=== PATIENT | female | born 1930 | race Caucasian/White ===

== ENCOUNTER 2018-01-12 18:04 | Inpatient (IN) | payer MEDICARE, OTHER ==
--- NOTE | 2018-01-12 18:36 | ED ---
Altered Mental Status - HPI Summary HPI Summary: An 87 y/o F BIBA presents to ED with AMS onset [employer]. Per daughter, pt was confused and talking about "taking her grandmother home." The daughter was going to bring the pt in, but upon walking her toward the car, the pt became very pale, then flushed and weak, she walked into a wall. Pt's last UTI was three years ago. No PMHx: psych issues, pt has mild confusion/dementia. - History Of Current Complaint Chief Complaint: EDAltMentalStatus Stated Complaint: AMS Time Seen by Provider: 01/12/18 18:35 Hx Obtained From: Patient, Family/Pediatric Genetic Counselor - daughter present Onset/Duration: Still Present Timing: Constant Severity Initially: Moderate Severity Currently: Moderate Character: Confusion Associated Signs And Symptoms: Positive: Weakness - Allergies/Home Medications Allergies/Adverse Reactions: Allergies Allergy/AdvReac Type Severity Reaction Status Date / Time No Known Allergies Allergy Verified 04/16/14 13:29 Home Medications: Home Medications Aspirin EC TAB* [Ecotrin EC Low Dose 81 MG*] 81 mg PO DAILY 01/12/18 [History Confirmed 01/12/18] Colesevelam(NF) [Welchol(NF)] 1,250 mg PO BID 01/12/18 [History Confirmed ] Furosemide TAB* [Lasix TAB*] 20 mg PO DAILY 01/12/18 [History Confirmed 01/12/18 ] Levothyroxine TAB* [Synthroid TAB*] 37.5 mcg PO DAILY 01/12/18 [History Confirmed 01/12/18] Loperamide HCl [Anti-Diarrheal] 2 mg PO TID PRN 01/12/18 [History Confirmed ] Mirabegron (NF) [Myrbetriq (NF)] 50 mg PO DAILY 01/12/18 [History Confirmed ] Solifenacin(NF) [Vesicare(NF)] 5 mg PO DAILY 01/12/18 [History Confirmed ] amLODIPine TAB* [Norvasc 5 mg TAB*] 5 mg PO DAILY 01/12/18 [History Confirmed ] PMH/Surg Hx/FS Hx/Imm Hx Previously Healthy: No Endocrine/Hematology History: Denies: Hx Diabetes Cardiovascular History: Reports: Hx Angina, Hx Congestive Heart Failure, Hx Coronary Artery Disease, Hx Hypercholesterolemia, Hx Hypertension, Other Cardiovascular Problems/Disorders - Echoardiagram 2014-ejection fx of 35-40% Denies: Hx Myocardial Infarction, Hx Valvular Heart Disease Respiratory History: Denies: Hx Asthma, Hx Chronic Obstructive Pulmonary Disease (COPD) History: Denies: Hx Renal Disease Musculoskeletal History: Reports: Other Musculoskeletal History - Osteoarthritis Sensory History: Reports: Hx Contacts or Glasses Opthamlomology History: Reports: Hx Contacts or Glasses Neurological History: Reports: Other Neuro Impairments/Disorders - PT HAS TREMORS, VISIBLE - Surgical History Surgery Procedure, Year, and Place: EYE SURGERY (CATARACTS?) DATE UNKNOWN. 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 Negative: Fever Positive: Weakness Psychological: Other - pos: AMS All Other Systems Reviewed And Are Negative: Yes Physical Exam - Summary Physical Exam Summary: VITAL SIGNS: Reviewed. GENERAL: Patient is a well-developed and mobirdly obese Female who is lying comfortable in the stretcher. Patient is not in any acute respiratory distress. HEAD AND FACE: No signs of trauma. No ecchymosis, hematomas or skull depressions. No sinus tenderness. EYES: PERRLA, EOMI x 2, No injected conjunctiva, no nystagmus. EARS: Hearing grossly intact. Ear canals and tympanic membranes are within normal limits. MOUTH: Oropharynx within normal limits. NECK: Supple, trachea is midline, no adenopathy, no JVD, no carotid bruit, no c- spine tenderness, neck with full ROM. CHEST: Symmetric, no tenderness at palpation LUNGS: Clear to auscultation bilaterally. No wheezing or crackles. CVS: Regular rate and rhythm, S1 and S2 present, no murmurs or gallops appreciated. ABDOMEN: Soft, non-tender. No signs of distention. No rebound no guarding, and no masses palpated. Bowel sounds are normal. EXTREMITIES: FROM in all major joints, bilateral lower extremity edema with chronic skin changes, no cyanosis or clubbing. NEURO: Alert and oriented x 2 - name and time. No acute neurological deficits. Non-focal. Speech is normal and follows commands. SKIN: Dry and warm Triage Information Reviewed: Yes Vital Signs On Initial Exam: Initial Vitals Temp Pulse Resp BP Pulse Ox 99.6 F 64 18 128/75 98 01/12/18 18:05 01/12/18 18:05 01/12/18 18:05 01/12/18 18:05 01/12/18 18:05 Vital Signs Reviewed: Yes Diagnostics - Vital Signs Vital Signs Temp Pulse Resp BP Pulse Ox 01/12/18 18:05 99.6 F 64 18 128/75 98 - Laboratory Result Diagrams: 01/12/18 19:33 01/12/18 19:33 Lab Statement: Any lab studies that have been ordered have been reviewed, and results considered in the medical decision making process. - Radiology CXR Xray Interpretation: Positive (See Comments) Radiology Interpretation Completed By: ED Physician - right lower lobe infiltrate, pending offical report. - CT brain ct CT Interpretation: No Acute Changes CT Interpretation Completed By: Radiologist - no acute intracranial abnormality , no change from the comparison study; this report was reviewed by ED physician. - EKG 1908 Cardiac Rate: Bradycardia - rate of 58 BPM EKG Rhythm: Sinus Bradycardia EKG Interpretation: q waves in v1 and v2 Re-Evaluation - Re-Evaluation First Eval Re-Evaluation Time: 20:12 Comment: Patient was informed of decision to admit for further workup, patient and patients daughter understand and are agreeable with this plan. Altered Mental Statu Course/Dx - Course Assessment/Plan: Patient is a 87 y/o F w/ c/o AMS onsetting today. Patients daughter was going to bring patient into ED due to AMS; while walking to car, patient became pale, then flushed and weak and then walked into a wall. Patient has mild confusion/dementia. PE showed patient was Alert and oriented x 2 - name and time, bilateral lower extremity edema with chronic skin changes. Patient is morbidly obese. EKG showed bradycardia, q waves in v1 and v2. CT showed no acute intracranial abnormalities. CXR revealed right lower lobe infiltrate. Labs showed 20.7 CRP. During ED course, patient was given IV antibiotics, piperacillin and tazobactam. Patients case was discussed with Dr. Arredondo at 2008. Dr. Arredondo accepts patient for admission to [facility]. Patient was informed of decision to admit for further workup, patient and patients daughter understand and are agreeable with this plan. Dx of pneumonia. - Diagnoses Provider Diagnoses: Pneumonia - Provider Notifications Discussed Care Of Patient With: Mor Avila Time Discussed With Above Provider: 20:09 Instructed by Provider To: Other - Patients case was discussed with Dr. Arredondo at 2008. Dr. Arredondo accepts patient for admission to [facility]. Discharge - Sign-Out/Discharge Documenting (check all that apply): Patient Departure - admit - Discharge Plan Condition: Good Disposition: ADMITTED TO [facility] Referrals: Davis Ferguson MD [Primary Care Provider] - - Attestation Statements Document Initiated by Scribe: Yes Documenting Scribe: Scottie Levi Provider For Whom Scribe is Documenting (Include Credential): Dr. Estephanie Caballero MD Scribe Attestation: I, Scottie Levi, scribed for Dr. Estephanie Caballero MD on at 2056.
[2018-01-12 19:50] LABS: ABS Basophils 0.1 10^3/ul (0-0.2); ABS Eosinophils 0.2 10^3/ul (0-0.6); ABS Lymphocytes 1.1 10^3/ul (1.0-4.8); ABS Monocytes 0.8 10^3/ul (0-0.8); ABS Nucleated RBC 0 10^3/ul; Eosinophil % 3.1 % (0-6); Hematocrit 37 % (35-47); Hemoglobin 12.3 g/dl (12.0-16.0); Lymphocyte % 14.9 % (25-47); Mean Corpuscular HGB Conc 33 g/dl (31-36); Mean Corpuscular Hemoglobin 31 pg (27-31); Mean Corpuscular Volume 92 fL (80-97); Mean Platelet Volume 8.6 um3 (7.4-10.4); Nucleated Red Blood Cells % 0; Platelet Count 188 10^3/ul (150-450); Red Blood Count 4.03 10^6/ul (4.00-5.40); Red Cell Distribution Width 15 % (10.5-15); White Blood Count 7.1 10^3/ul (3.5-10.8)
[2018-01-12] MEDS ORDERED: Azithromycin IV(*) 500 MG in NS 0.9% 250 ML* 250 ML IVPB ONE (19:58)
[2018-01-12] MEDS ORDERED: Piperacillin/Tazobac ADVAN(*) 3.375 GM in NS 0.9% 100 ML* 100 ML IVPB ONE (19:58)
[2018-01-12 20:00] LABS: INR 0.98 (0.77-1.02)
--- NOTE | 2018-01-12 20:00 | RAD ---
EXAM: CT Head Without Intravenous Contrast CLINICAL HISTORY: 87 years old, female; Signs and symptoms; Altered mental status/memory loss; Additional info: Confusion TECHNIQUE: Axial computed tomography images of the head/brain without intravenous contrast. All CT scans at this facility use at least one of these dose optimization techniques: automated exposure control; mA and/or kV adjustment per patient size (includes targeted exams where dose is matched to clinical indication); or iterative reconstruction. COMPARISON: BRAIN WO CT BRAIN WO 05/03/2014 12:51 PM FINDINGS: Brain: Chronic ischemic changes. Diffuse atrophy. No mass, acute hemorrhage, or edema. Ventricles: Compensatory ventriculomegaly. Bones/joints: Normal. No acute fracture. Sinuses: Normal as visualized. No acute sinusitis. Mastoid air cells: Normal as visualized. No mastoid effusion. Soft tissues: Normal. Vasculature: Atherosclerotic calcification. IMPRESSION: No acute intracranial abnormality. No change from the comparison study.
[2018-01-12 20:21] LABS: EGFR Non-African American 52.6 (>60)
[2018-01-12] MEDS ORDERED: Acetaminophen TAB* 325 MG PO PRN (21:28)
[2018-01-12] MEDS: cefTRIAXone(*) 1 GM in NS 0.9% 50 ML* 50 ML IVPB SCH (23:08)
[2018-01-13 00:38] LABS: Urine Appearance Clear; Urine Color Yellow
[2018-01-13 00:39] LABS: Urine Blood NEG (Negative); Urine Ketones NEG (Negative); Urine Protein NEG (Negative); Urine Specific Gravity 1.015 (1.010-1.030); Urine Urobilinogen NEG (Negative)
--- NOTE | 2018-01-13 03:00 | HP ---
CC: Dr. Davis Ferguson * HISTORY AND PHYSICAL: DATE OF ADMISSION: 01/12/18 PRIMARY CARE PROVIDER: Dr. Davis Ferguson. ATTENDING PHYSICIAN: Mor vAila MD * (dictated by Samaria Metcalf NP) CHIEF COMPLAINT: Confusion. HISTORY OF PRESENT ILLNESS: Ms. Villeda is an 87-year-old female with past medical history significant for hypothyroidism, congestive heart failure, hypertension, hyperlipidemia, and coronary artery disease, who has been in her usual state of health other than being deconditioned per her daughter, resides at [place]. The patient's daughter states that she received a call from [place] today stating that her mom was confused. While the daughter was talking to her mom today, the patient was talking about talking with her grandmother. She is not typically confused, so her daughter felt that she should be brought to the emergency room for evaluation. She attempted to bring her by a car while walking towards the car in [place], she became very pale, flushed, and weak, walking into a wall. Due to these episode, EMS was called and the patient was brought to the emergency room. The patient denies any fevers, chills, chest pain. She has shortness of breath at baseline. This is not changed. She denies any cough. She has chronic lymphedema in the bilateral lower extremities. She reports a runny nose and denies any vomiting, diarrhea, urinary symptoms such as urgency, changes in urgency, dysuria, or frequency. She does report having some urgency, urinary urgency at night from which she has recently been following with urology and then started on medications for. According to the daughter, she has noted in general that her mother has been more deconditioned and having generalized weakness on her typical baseline. She manages at home normally by being able to get rest. The patient's daughter states she has chronic lymphedema, but feels that her lower extremities maybe slightly more swollen than baseline. While in the emergency room, she had labs that were unremarkable. No leukocytosis. She was afebrile. She had an EKG showing sinus luana. No acute signs of ischemia. She had a brain CT showing no acute intracranial pathology. She additionally had a chest x-ray showing possible right lower lobe infiltrate with official read pending. She received azithromycin in the ER. She reports cultures drawn and the hospitalists were asked to evaluate the patient for admission. PAST MEDICAL HISTORY: 1. Hypothyroidism. 2. Congestive heart failure. 3. Hypertension. 4. Hyperlipidemia. 5. Coronary artery disease. PAST SURGICAL HISTORY: 1. Status post cardiac catheterization with stent placement. 2. Status post cholecystectomy. 3. Status post bilateral cataract extraction. MEDICATIONS: Home medications include: 1. Loperamide 2 mg oral 3 times daily, as needed for diarrhea. 2. Acetaminophen 650 mg oral every 4 hours as needed for pain. 3. Mirabegron 50 mg oral daily. 4. Furosemide 20 mg oral daily. 5. Amlodipine 5 mg oral daily. 6. Aspirin 81 mg oral daily. 7. Welchol 1250 mg oral twice daily. 8. Metoprolol succinate 200 mg oral daily. 9. Levothyroxine 37.5 mcg oral daily. 10. VESIcare 5 mg oral daily. ALLERGIES: No known drug allergies. FAMILY HISTORY: She denies any family history of coronary artery disease, diabetes, or cancer. SOCIAL HISTORY: The patient denies any tobacco, alcohol, or recreational drug use. Her daughter Charleen Virk will be her surrogate decision maker in the event she is unable to take decisions for herself. REVIEW OF SYSTEMS: I performed a 11 point review of systems. All the pertinent positives and negatives are mentioned in the history of present illness. The remaining review of systems are negative. PHYSICAL EXAMINATION GENERAL APPEARANCE: The patient is alert, pleasant, and appears to be in no acute distress. VITAL SIGNS: Temperature 99.6, heart rate 64, respiratory rate 18, O2 sat 98% on 2 L via nasal cannula, blood pressure 128/75. HEENT: Normocephalic, atraumatic. Pupils are equal and reactive to light. Extraocular movements are intact. RESPIRATORY: There is no accessory muscle use. The lungs are clear to auscultation bilaterally. There is no wheezing or crackles. CARDIOVASCULAR: Regular rate and rhythm. S1 and S2 present. There are no murmurs, rubs, or gallops heard. ABDOMEN: Soft, nontender, and nondistended. There are bowel sounds present x4. EXTREMITIES: Lower extremity edema. DP and PT pulses are 1+ and symmetric. MUSCULOSKELETAL: There is no clubbing or cyanosis noted. The patient exhibits good strength in all extremities. The patient to have a large lower extremities representing chronic lymphedema in bilateral legs. NEUROLOGICAL: The patient is alert and oriented x2, person and time. There is no difficulty with speech. No acute neurological defects. She has mild confusion. PSYCHOLOGICAL: The patient is calm and cooperative. SKIN: There are no rashes or abnormalities seen. DIAGNOSTIC STUDIES/LABORATORY DATA: Sodium 138, potassium 4.1, chloride 106, CO2 of 27. BUN 19 and creatinine 1.00. Glucose 120. White blood cell count 7.1, hemoglobin 12.3, hematocrit 37, platelet count 188. CRP 20.70. Procalcitonin less than 0.1. EKG shows sinus bradycardia, rate of 58. There are no acute signs of ischemia, this was similar to previous EKG from 04/17/14. Chest x-ray from today. My interpretation: Right lower lobe infiltrate, pending official report. Brain CT from today. Radiologist's impression: No acute intracranial abnormality. No change from the comparison study. IMPRESSION: Ms. Villeda is an 87-year-old female with past medical history for congestive heart failure, hypothyroidism, hypertension, dyslipidemia, coronary artery disease, who presented to the emergency room with confusion. She will be admitted as an observation for community-acquired pneumonia. ASSESSMENT/PLAN: 1. Confusion. I suspect this is secondary to likely pneumonia, although, could also be secondary to urinary tract infection. She has a UA pending, we will get her UA. She had a negative brain CT. 2. Community-acquired pneumonia. The patient received IV azithromycin and ceftriaxone. She already had blood cultures drawn. We will check her sputum culture and we will also check urine antigens for S. pneumoniae and Legionella. She has a procalcitonin of less than 0.1. She is afebrile. Has no leukocytosis at this time, but does appear to have an infiltrate on chest x- ray. She does have elevated CRP of 20.70. 3. Generalized weakness. We will have the patient have physical therapy evaluation. The patient's daughter reports that she has had slow decline in her generalized weakness for a while now. 4. Hypothyroidism. Continue her on her home levothyroxine dose. 5. Hypertension. She will be continued on her home metoprolol, amlodipine. 6. Hyperlipidemia. She will be continued on her home Welchol. 7. Coronary artery disease. She denies any chest pain at this time. She will be continued on her home aspirin, Welchol and metoprolol. 8. Congestive heart failure. The patient will have daily weights, strict I's and O's. Her last echocardiogram in 2013 at which time she had EF of 35-40%, showing a moderately decreased left ventricular systolic function and abnormal left ventricular diastolic filling. She is not currently on diuretics. We will hold on IV fluids. 9. Fluids, electrolytes, and nutrition. She will be on a low-sodium diet. 10. Code status. Do not resuscitate. She has MOLST form filed. 11. Deep vein thrombosis prophylaxis. She is at highest risk. I will place her on subcu heparin. I am going to hold off on SCDs in the setting of her congestive heart failure. 12. Disposition. Observation. TIME SPENT: Time for this admission was approximately 60 minutes, greater than half of that was spent with the patient and her daughter discussing medications , past medical history, the events leading up to her arrival today, and performing a physical examination. The case has been reviewed with the attending , Dr. Avila, who agrees with the plan of care. SAMARIA HUNT, JESSIE [id number]/CPS #: [id number] PRECIOUS
[2018-01-13] MEDS: Levothyroxine TAB* 75 MCG TAB PO SCH (05:12)
[2018-01-13] MEDS: Heparin VIAL(*) 5000 UNITS/ML VIAL (FIVE THOUSAND) SUBCUT SCH ×3 (05:12→22:17)
--- NOTE | 2018-01-13 07:07 | RAD ---
INDICATION: Shortness of breath. COMPARISON: Comparison is made with a prior study from May 03, 2014. TECHNIQUE: A portable view of the chest was obtained. FINDINGS: The heart appears mildly enlarged and unchanged from the prior exam. There are bibasilar infiltrates and a trace right pleural effusion which appear new. IMPRESSION: BIBASILAR INFILTRATES AND TRACE RIGHT PLEURAL EFFUSION. R0
[2018-01-13 07:26] LABS: ABS Basophils 0.1 10^3/ul (0-0.2); ABS Eosinophils 0.2 10^3/ul (0-0.6); ABS Monocytes 0.8 10^3/ul (0-0.8); ABS Neutrophils 4.4 10^3/ul (1.5-7.7); ABS Nucleated RBC 0 10^3/ul; Hematocrit 33 % (35-47); Hemoglobin 11.2 g/dl (12.0-16.0); Lymphocyte % 15.2 % (25-47); Mean Corpuscular HGB Conc 34 g/dl (31-36); Mean Corpuscular Hemoglobin 31 pg (27-31); Mean Corpuscular Volume 91 fL (80-97); Mean Platelet Volume 9.2 um3 (7.4-10.4); Nucleated Red Blood Cells % 0.1; Platelet Count 162 10^3/ul (150-450); Red Blood Count 3.64 10^6/ul (4.00-5.40); Red Cell Distribution Width 15 % (10.5-15); White Blood Count 6.5 10^3/ul (3.5-10.8)
[2018-01-13] MEDS ORDERED: Metoprolol Succinate XL TAB* 200 MG TAB.XL PO SCH (09:00)
[2018-01-13] MEDS: amLODIPine TAB* 5 MG PO SCH (09:06)
[2018-01-13] MEDS: Aspirin EC TAB* 81 MG TAB.EC PO SCH (09:06)
[2018-01-13] MEDS ORDERED: Furosemide IV* 10 MG/ML 2 ML VIAL (20 MG) IV ONE (10:35)
[2018-01-13] MEDS: Nystatin TOP POWDER* 15 GM BTL TOPICAL SCH ×3 (11:02→22:17)
[2018-01-13] MEDS: Mirabegron (NF) 50 MG TAB PO SCH (11:09)
[2018-01-13] MEDS: CMC:Solifenacin(NF) 5 MG TAB PO SCH (11:09)
[2018-01-13] MEDS: Colesevelam(NF) 625 MG TAB PO SCH ×2 (11:16→22:19)
--- NOTE | 2018-01-13 11:31 | PN ---
Subjective Date of Service: 01/13/18 Interval History: Patient seen and examined. Remains on O2, denies chest pain, denies acute SOB, no cough. States she feels improved from admission, less weak. Complaints of urinary frequency and sometimes incontinent, however, she says she was "dry" this AM. Objective Active Medications: Acetaminophen (Tylenol Tab*) 650 mg PO Q4H PRN PRN Reason: FEVER/PAIN Amlodipine Besylate (Norvasc Tab*) 5 mg PO DAILY [facility] Last Admin: 01/13/18 09:06 Dose: 5 mg Aspirin (Aspirin Ec Tab*) 81 mg PO DAILY [facility] Last Admin: 01/13/18 09:06 Dose: 81 mg Colesevelam HCl (Welchol(Nf)) 1,250 mg PO BID [facility] Last Admin: 01/13/18 11:16 Dose: Not Given Furosemide (Lasix Tab*) 20 mg PO DAILY [facility] Heparin Sodium (Porcine) (Heparin Vial(*)) 5,000 units SUBCUT Q8HR [facility] Last Admin: 01/13/18 05:12 Dose: 5,000 units Ceftriaxone Sodium 1 gm/ (Sodium Chloride) 50 mls @ 200 mls/hr IVPB Q24H [facility] Last Admin: 01/12/18 23:08 Dose: 200 mls/hr Azithromycin 500 mg/ Sodium (Chloride) 250 mls @ 250 mls/hr IVPB Q24H [facility] Levothyroxine Sodium (Synthroid Tab*) 37.5 mcg PO DAILY@0600 [facility] Last Admin: 01/13/18 05:12 Dose: 37.5 mcg Metoprolol Succinate (Toprol Xl Tab*) 100 mg PO DAILY [facility] Mirabegron (Myrbetriq (Nf)) 50 mg PO DAILY [facility] Last Admin: 01/13/18 11:09 Dose: Not Given Nystatin (Nystatin Top Powder*) 1 applic TOPICAL TID [facility] Last Admin: 01/13/18 11:02 Dose: 1 applic Solifenacin (Vesicare(Nf)) 5 mg PO DAILY [facility] Last Admin: 01/13/18 11:09 Dose: Not Given Vital Signs - 8 hr 01/13/18 01/13/18 01/13/18 04:48 08:00 08:25 Temperature 97.5 F 97.9 F Pulse Rate 56 55 Respiratory 17 14 14 Rate Blood Pressure 131/64 133/63 (mmHg) O2 Sat by Pulse 95 98 98 Oximetry Oxygen Devices in Use Now: Nasal Cannula Appearance: Alert, NAD Eyes: No Scleral Icterus, PERRLA Ears/Nose/Mouth/Throat: Mucous Membranes Moist Neck: NL Appearance and Movements; NL JVP, Trachea Midline Respiratory: Symmetrical Chest Expansion and Respiratory Effort - diminished LLB Cardiovascular: NL Sounds; No Murmurs; No JVD, - Abdominal: NL Sounds; No Tenderness; No Distention Extremities: No Clubbing, Cyanosis - bilateral lymphedema LE Skin: - - some discoloration to bilateral LE 2/2 fluid Neurological: Alert and Oriented x 3 Nutrition: Taking PO's Result Diagrams: 01/13/18 06:42 01/12/18 19:33 Microbiology and Other Data: Microbiology 01/12/18 23:45 Legionella Urinary Antigen - Final Urine Negative Legionella Antigen Streptococcus pneumoniae Ag Screen - Final Negative S. pneumo Antigen 01/12/18 23:45 Nasal Screen MRSA (PCR) - Final Nasal Mrsa Detected Assess/Plan/Problems-Billing Assessment: This is an 87 year old female that presents to the ER with complaint of weakness and lymphedema found to have CAP. - Patient Problems (1) CAP (community acquired pneumonia) Code(s): J18.9 - PNEUMONIA, UNSPECIFIED ORGANISM SNOMED Code(s): 555172369 Comment: - With hypoxia, remains on O2, will titrate and wean - Continue ceftriaxone and azithromycin - Strep and legionella antigens negative - Positive MRSA nares, will try to get sputum culture - Utilize IS - Will start lasix, appears hypervolemic (2) Lymphedema of both lower extremities Code(s): I89.0 - LYMPHEDEMA, NOT ELSEWHERE CLASSIFIED SNOMED Code(s): 10279085027844796 Comment: - KESHA wrap, lasix, supportive care (3) Hyperlipidemia Code(s): E78.5 - HYPERLIPIDEMIA, UNSPECIFIED SNOMED Code(s): 98861600 Comment: - Continue Wellchol (4) Hypertension Code(s): I10 - ESSENTIAL (PRIMARY) HYPERTENSION SNOMED Code(s): 73196641 Comment: - BP stable on home meds, monitor BP while also on lasix (5) Obesity Code(s): E66.9 - OBESITY, UNSPECIFIED SNOMED Code(s): 441310565 Comment: - BMI=43.2, may be component of lymphedema as well - Daily weights (6) DVT prophylaxis Code(s): XRG5993 - SNOMED Code(s): 962829102 Comment: - HSQ (7) DNR (do not resuscitate) Comment: Status and Disposition: Remain inpatient.
[2018-01-13] MEDS: Azithromycin IV(*) 500 MG in NS 0.9% 250 ML* 250 ML IVPB SCH (22:17)
[2018-01-14] MEDS: cefTRIAXone(*) 1 GM in NS 0.9% 50 ML* 50 ML IVPB SCH ×2 (00:08→23:18)
[2018-01-14] MEDS ORDERED: Morphine VIAL* 4 MG/ML VIAL (1 ml vial) IV ONE (04:53)
[2018-01-14] MEDS ORDERED: Furosemide IV* 10 MG/ML VIAL (40 MG) IV ONE (05:40)
[2018-01-14] MEDS ORDERED: Furosemide IV* 10 MG/ML VIAL (40 MG) ONE (05:42)
[2018-01-14] MEDS: Levothyroxine TAB* 75 MCG TAB PO SCH (06:16)
[2018-01-14] MEDS: Heparin VIAL(*) 5000 UNITS/ML VIAL (FIVE THOUSAND) SUBCUT SCH ×3 (06:16→21:53)
--- NOTE | 2018-01-14 09:56 | PN ---
Subjective Date of Service: 01/14/18 Interval History: Patient seen and examined at bedside. Denies fever, chills, chest discomfort, N/ V/D. Pt reports shortness of brath and is requiring supplemental oxygen. Pt states that she had a bad night and was kept up by [facility] staff. Ms. Villeda feels like her LE edema is improving since receiving Lasix. She reports frequent urination and is INC. urine since she received the Lasix this AM. Pt states that she felt the KESHA wraps were too tight on her LEs (Pt's daughter states that she doesn't even like to have socks on her legs). According to her daughter she was very anxious and "feeling like she was going to dye", Her daughter states that she got several phone calls overnight. Pt's daughter is still interested in MIRIAM at discharge. Family History: Unchanged from Admission Social History: Unchanged from Admission Past Medical History: Unchanged from Admission Objective Active Medications: Acetaminophen (Tylenol Tab*) 650 mg PO Q4H PRN Reason: FEVER/PAIN Amlodipine Besylate (Norvasc Tab*) 5 mg PO DAILY [facility] Aspirin (Aspirin Ec Tab*) 81 mg PO DAILY CARLA Colesevelam HCl (Welchol(Nf)) 1,250 mg PO BID CARLA Furosemide (Lasix Tab*) 20 mg PO DAILY [facility] Heparin Sodium (Porcine) (Heparin Vial(*)) 5,000 units SUBCUT Q8HR CARLA Ceftriaxone Sodium 1 gm/ (Sodium Chloride) 50 mls @ 200 mls/hr IVPB Q24H [facility] Azithromycin 500 mg/ Sodium (Chloride) 250 mls @ 250 mls/hr IVPB Q24H [facility] Levothyroxine Sodium (Synthroid Tab*) 37.5 mcg PO DAILY@0600 [facility] Metoprolol Succinate (Toprol Xl Tab*) 100 mg PO DAILY CARLA Mirabegron (Myrbetriq (Nf)) 50 mg PO DAILY [facility] Nystatin (Nystatin Top Powder*) 1 applic TOPICAL TID CARLA Solifenacin (Vesicare(Nf)) 5 mg PO DAILY [facility] Vital Signs - 8 hr 01/14/18 01/14/18 01/14/18 04:10 04:47 05:05 Temperature 98.4 F Pulse Rate 74 77 Respiratory 24 34 30 Rate Blood Pressure 132/54 153/64 (mmHg) O2 Sat by Pulse 94 96 Oximetry 01/14/18 01/14/18 06:15 08:28 Temperature 97.8 F Pulse Rate 65 Respiratory 24 18 Rate Blood Pressure 124/52 (mmHg) O2 Sat by Pulse 96 Oximetry Oxygen Devices in Use Now: Nasal Cannula - 2L Appearance: NAD, sitting up in bed Ears/Nose/Mouth/Throat: Mucous Membranes Moist Respiratory: Symmetrical Chest Expansion and Respiratory Effort, - - Lungs clear bilateral, excpet fine crackles in the left lower lobe Cardiovascular: NL Sounds; No Murmurs; No JVD, RRR Abdominal: NL Sounds; No Tenderness; No Distention Extremities: - - Bilateral lymphedema and edema Skin: - - Rash to right LE below knee. Bilateral LE with chronic skin changes Neurological: Alert and Oriented x 3 - , confusion, NL Muscle Strength and Tone Lines/Tubes/Other Access: Clean, Dry and Intact Peripheral IV - site benign Nutrition: Taking PO's Result Diagrams: 01/13/18 06:42 01/12/18 19:33 Microbiology and Other Data: Microbiology 01/12/18 23:45 Legionella Urinary Antigen - Final Urine Negative Legionella Antigen Streptococcus pneumoniae Ag Screen - Final Negative S. pneumo Antigen 01/12/18 23:45 Nasal Screen MRSA (PCR) - Final Nasal Mrsa Detected Assess/Plan/Problems-Billing Assessment: Ms. Villeda is an 87 year old female with PMH significant for hypothyroidism, CHF , HTN, HLD, CAD and chronic lymphedema who presented to the ER with complaint of weakness and was found to have CAP. - Patient Problems (1) CAP (community acquired pneumonia) Code(s): J18.9 - PNEUMONIA, UNSPECIFIED ORGANISM SNOMED Code(s): 041237053 Comment: - Afebrile and no leukocytosis - With acute hypoxic respiratory failure, remains on O2, will titrate and wean - Blood cultures negative, day 1 - Strep and legionella antigens negative - Positive MRSA nares, sputum culture pending - Continue lasix, appears hypervolemic but improving - Continue ceftriaxone and azithromycin (2) Lymphedema of both lower extremities Code(s): I89.0 - LYMPHEDEMA, NOT ELSEWHERE CLASSIFIED SNOMED Code(s): 52045624206211035 Comment: - KESHA wrap, lasix, supportive care (3) Hypertension Code(s): I10 - ESSENTIAL (PRIMARY) HYPERTENSION SNOMED Code(s): 07511910 Comment: - SBP 120-150's - Continue metoprolol (decreased dose), lasix, and Norvasc (4) CHF (congestive heart failure) Code(s): I50.9 - HEART FAILURE, UNSPECIFIED SNOMED Code(s): 04063041 Comment: - Pt appears to be hypervolemic, bilateral LE edema (improving from admission) - Combined systolic diastolic HF - last echo 2013 showed EF 30-35% - Daily weights and strict I+O's - Continue Lasix (5) Hyperlipidemia Code(s): E78.5 - HYPERLIPIDEMIA, UNSPECIFIED SNOMED Code(s): 39372603 Comment: - Continue Wellchol (6) Hypothyroidism Code(s): E03.9 - HYPOTHYROIDISM, UNSPECIFIED SNOMED Code(s): 50693514 Comment: - Continue levothyroxine (7) Obesity Code(s): E66.9 - OBESITY, UNSPECIFIED SNOMED Code(s): 758988443 Comment: - BMI ~ 43.2, may be component of lymphedema as well - Daily weights (8) DVT prophylaxis Code(s): IJH3110 - SNOMED Code(s): 285698844 Comment: - HSQ (9) DNR (do not resuscitate) Status and Disposition: Inpatient. Discharge when medically stable, suspect she will need MIRIAM.
[2018-01-14] MEDS: Furosemide TAB* 20 MG PO SCH (11:08)
[2018-01-14] MEDS: Colesevelam(NF) 625 MG TAB PO SCH ×2 (11:09→21:53)
[2018-01-14] MEDS: Mirabegron (NF) 50 MG TAB PO SCH (11:10)
[2018-01-14] MEDS: Metoprolol Succinate XL TAB* 100 MG PO SCH (11:43)
[2018-01-14] MEDS: Aspirin EC TAB* 81 MG TAB.EC PO SCH (11:43)
[2018-01-14] MEDS: CMC:Solifenacin(NF) 5 MG TAB PO SCH (11:43)
[2018-01-14] MEDS: amLODIPine TAB* 5 MG PO SCH (11:43)
[2018-01-14] MEDS: Nystatin TOP POWDER* 15 GM BTL TOPICAL SCH ×3 (11:44→21:53)
[2018-01-14] MEDS: Azithromycin IV(*) 500 MG in NS 0.9% 250 ML* 250 ML IVPB SCH (21:52)
[2018-01-15] MEDS: Levothyroxine TAB* 75 MCG TAB PO SCH (05:28)
[2018-01-15] MEDS: Heparin VIAL(*) 5000 UNITS/ML VIAL (FIVE THOUSAND) SUBCUT SCH ×3 (05:28→21:00)
[2018-01-15] MEDS: CMC:Solifenacin(NF) 5 MG TAB PO SCH (08:01)
[2018-01-15] MEDS: Aspirin EC TAB* 81 MG TAB.EC PO SCH (08:01)
[2018-01-15] MEDS: Furosemide TAB* 20 MG PO SCH (08:01)
[2018-01-15] MEDS: Metoprolol Succinate XL TAB* 100 MG PO SCH (08:01)
[2018-01-15] MEDS: amLODIPine TAB* 5 MG PO SCH (08:01)
[2018-01-15] MEDS: Colesevelam(NF) 625 MG TAB PO SCH ×2 (08:02→21:46)
[2018-01-15] MEDS: Mirabegron (NF) 50 MG TAB PO SCH (08:02)
[2018-01-15] MEDS: Nystatin TOP POWDER* 15 GM BTL TOPICAL SCH ×3 (08:06→21:47)
--- NOTE | 2018-01-15 13:55 | PN ---
Subjective Date of Service: 01/15/18 Interval History: Patient seen and examined at bedside. Denies fever, chills. shortness of breath , cough, chest discomfort, N/V/D. She reports a decreased appetite but is eating some. She reports that her oxygen has been being titrated down. Pt continues to have periods of increased confusion. Family History: Unchanged from Admission Social History: Unchanged from Admission Past Medical History: Unchanged from Admission Objective Active Medications: Acetaminophen (Tylenol Tab*) 650 mg PO Q4H PRN Reason: FEVER/PAIN Amlodipine Besylate (Norvasc Tab*) 5 mg PO DAILY [facility] Aspirin (Aspirin Ec Tab*) 81 mg PO DAILY [facility]LA Colesevelam HCl (Welchol(Nf)) 1,250 mg PO BID [facility]LA Furosemide (Lasix Tab*) 20 mg PO DAILY [facility] Heparin Sodium (Porcine) (Heparin Vial(*)) 5,000 units SUBCUT Q8HR [facility] Ceftriaxone Sodium 1 gm/ (Sodium Chloride) 50 mls @ 200 mls/hr IVPB Q24H [facility] Azithromycin 500 mg/ Sodium (Chloride) 250 mls @ 250 mls/hr IVPB Q24H [facility] Levothyroxine Sodium (Synthroid Tab*) 37.5 mcg PO DAILY@0600 [facility] Metoprolol Succinate (Toprol Xl Tab*) 100 mg PO DAILY [facility]LA Mirabegron (Myrbetriq (Nf)) 50 mg PO DAILY [facility] Nystatin (Nystatin Top Powder*) 1 applic TOPICAL TID CARLA Solifenacin (Vesicare(Nf)) 5 mg PO DAILY [facility] Vital Signs - 8 hr 01/15/18 01/15/18 01/15/18 07:55 08:00 13:16 Temperature 98.6 F 98.8 F Pulse Rate 68 77 Respiratory 22 22 14 Rate Blood Pressure 127/52 131/58 (mmHg) O2 Sat by Pulse 100 100 97 Oximetry Oxygen Devices in Use Now: Nasal Cannula - 1L Appearance: NAD, sitting up in a chair Ears/Nose/Mouth/Throat: Mucous Membranes Moist Respiratory: Symmetrical Chest Expansion and Respiratory Effort, - - Bilateral lungs diminished, crackles in the right lower lobe Cardiovascular: NL Sounds; No Murmurs; No JVD, RRR Abdominal: NL Sounds; No Tenderness; No Distention Extremities: - - Bilateral LE edema 1-2+, improving Skin: - - Skin changes to bilateral LEs Neurological: NL Muscle Strength and Tone, - - Alert and Oriented to Person and Place Lines/Tubes/Other Access: Clean, Dry and Intact Peripheral IV - site benign Nutrition: Taking PO's Result Diagrams: 01/13/18 06:42 01/12/18 19:33 Microbiology and Other Data: Microbiology 01/12/18 23:45 Legionella Urinary Antigen - Final Urine Negative Legionella Antigen Streptococcus pneumoniae Ag Screen - Final Negative S. pneumo Antigen 01/12/18 23:45 Nasal Screen MRSA (PCR) - Final Nasal Mrsa Detected Assess/Plan/Problems-Billing Assessment: Ms. Villeda is an 87 year old female with PMH significant for hypothyroidism, CHF , HTN, HLD, CAD and chronic lymphedema who presented to the ER with complaint of weakness and was found to have CAP. - Patient Problems (1) CAP (community acquired pneumonia) Code(s): J18.9 - PNEUMONIA, UNSPECIFIED ORGANISM SNOMED Code(s): 294023085 Comment: - Afebrile and no leukocytosis - With acute hypoxic respiratory failure, remains on O2, will titrate and wean - Blood cultures negative, day 2 - Strep and legionella antigens negative - Positive MRSA nares, sputum culture pending - Continue lasix, appears hypervolemic but improving - Continue ceftriaxone and azithromycin (2) Delirium Code(s): R41.0 - DISORIENTATION, UNSPECIFIED SNOMED Code(s): 5947599 Comment: - Hospital acquired - Continue supportive care (3) Lymphedema of both lower extremities Code(s): I89.0 - LYMPHEDEMA, NOT ELSEWHERE CLASSIFIED SNOMED Code(s): 50035620880747217 Comment: - KESHA wrap, lasix, supportive care (4) Hypertension Code(s): I10 - ESSENTIAL (PRIMARY) HYPERTENSION SNOMED Code(s): 06501025 Comment: - SBP 120-130's - Continue metoprolol (decreased dose), lasix, and Norvasc (5) CHF (congestive heart failure) Code(s): I50.9 - HEART FAILURE, UNSPECIFIED SNOMED Code(s): 22007413 Comment: - Pt appears to be hypervolemic, bilateral LE edema (improving from admission) - Combined systolic diastolic HF - last echo 2013 showed EF 30-35% - Daily weights and strict I+O's - Continue Lasix (6) Hyperlipidemia Code(s): E78.5 - HYPERLIPIDEMIA, UNSPECIFIED SNOMED Code(s): 57289767 Comment: - Continue Wellchol (7) Hypothyroidism Code(s): E03.9 - HYPOTHYROIDISM, UNSPECIFIED SNOMED Code(s): 29202132 Comment: - Continue levothyroxine (8) Obesity Code(s): E66.9 - OBESITY, UNSPECIFIED SNOMED Code(s): 207866267 Comment: - BMI ~ 43.2, may be component of lymphedema as well - Daily weights (9) DVT prophylaxis Code(s): DBU1308 - SNOMED Code(s): 768299924 Comment: - HSQ (10) DNR (do not resuscitate) Status and Disposition: Inpatient. Discharge when medically stable, suspect she will need MIRIAM.
[2018-01-15] MEDS: Azithromycin IV(*) 500 MG in NS 0.9% 250 ML* 250 ML IVPB SCH (21:00)
[2018-01-15] MEDS: cefTRIAXone(*) 1 GM in NS 0.9% 50 ML* 50 ML IVPB SCH (22:59)
[2018-01-16] MEDS: Levothyroxine TAB* 75 MCG TAB PO SCH (05:12)
[2018-01-16] MEDS: Heparin VIAL(*) 5000 UNITS/ML VIAL (FIVE THOUSAND) SUBCUT SCH ×3 (05:12→21:00)
[2018-01-16] MEDS: CMC:Solifenacin(NF) 5 MG TAB PO SCH (07:41)
[2018-01-16] MEDS: Colesevelam(NF) 625 MG TAB PO SCH ×2 (07:41→21:01)
[2018-01-16] MEDS: Aspirin EC TAB* 81 MG TAB.EC PO SCH (07:41)
[2018-01-16] MEDS: amLODIPine TAB* 5 MG PO SCH (07:41)
[2018-01-16] MEDS: Metoprolol Succinate XL TAB* 100 MG PO SCH (07:41)
[2018-01-16] MEDS: Furosemide TAB* 20 MG PO SCH (07:41)
[2018-01-16] MEDS: Mirabegron (NF) 50 MG TAB PO SCH (07:42)
[2018-01-16] MEDS: Nystatin TOP POWDER* 15 GM BTL TOPICAL SCH ×3 (07:42→21:00)
--- NOTE | 2018-01-16 09:55 | RAD ---
HISTORY: fever COMPARISONS: January 12, 2018 VIEWS: 1: frontal AP view of the chest at 9:42 AM FINDINGS: LINES AND TUBES: None. CARDIOMEDIASTINAL SILHOUETTE: The cardiomediastinal silhouette is normal for portable technique. PLEURA: The costophrenic angles are sharp. No pleural abnormalities are noted. LUNG PARENCHYMA: There is persistent patchy alveolar opacification of the lung bases bilaterally. ABDOMEN: The upper abdomen is clear. There is no subphrenic gas. BONES AND SOFT TISSUES: Mild degenerative changes are noted. IMPRESSION: PERSISTENT PATCHY BIBASILAR ATELECTASIS VERSUS CONSOLIDATION
[2018-01-16 11:45] LABS: ABS Basophils 0.1 10^3/ul (0-0.2); ABS Eosinophils 0.1 10^3/ul (0-0.6); ABS Lymphocytes 0.9 10^3/ul (1.0-4.8); ABS Monocytes 1.2 10^3/ul (0-0.8); ABS Neutrophils 6.9 10^3/ul (1.5-7.7); ABS Nucleated RBC 0 10^3/ul; Eosinophil % 0.9 % (0-6); Hematocrit 37 % (35-47); Lymphocyte % 10.1 % (25-47); Mean Corpuscular HGB Conc 33 g/dl (31-36); Mean Corpuscular Hemoglobin 31 pg (27-31); Mean Corpuscular Volume 93 fL (80-97); Mean Platelet Volume 9.3 um3 (7.4-10.4); Nucleated Red Blood Cells % 0; Platelet Count 172 10^3/ul (150-450); Red Blood Count 3.93 10^6/ul (4.00-5.40); Red Cell Distribution Width 15 % (10.5-15); White Blood Count 9.2 10^3/ul (3.5-10.8)
[2018-01-16 12:03] LABS: EGFR Non-African American 63.4 (>60)
--- NOTE | 2018-01-16 15:11 | RAD ---
HISTORY: pulmonary edema vs. consolidation COMPARISONS: CT chest dated April 17, 2014, chest x-ray dated January 16, 2018 TECHNIQUE: Multiple contiguous axial CT scans of the chest were obtained without intravenous contrast. Coronal and sagittal multiplanar reformations are also submitted for review. FINDINGS: Evaluation is limited due to the lack of intravenous contrast. This limits evaluation of the solid organs and vasculature. Evaluation is also limited secondary to patient breathing motion artifact. NECK AND THYROID: The lower neck and thyroid are unremarkable. CHEST WALL: There is no lower cervical, axillary, or supraclavicular lymphadenopathy by size criteria. HEART AND PERICARDIUM: There is biatrial and biventricular enlargement with coronary and valvular cardiac calcification. AORTA AND PULMONARY VASCULATURE: There is calcification of the thoracic aorta. The pulmonary vasculature is unremarkable. MEDIASTINUM: There is no mediastinal lymphadenopathy by size criteria. HOMERO: There is no hilar lymphadenopathy by size criteria. AIRWAY AND ESOPHAGUS: The airway is unremarkable, without endobronchial filling defect. The esophagus is grossly normal. LUNG PARENCHYMA: There is compressive atelectasis of the lower lungs bilaterally. PLEURA: There are moderate bilateral pleural effusions. UPPER ABDOMEN: The upper abdomen is unremarkable. BONES AND SOFT TISSUES: There is diffuse osteopenia. Degenerative changes are noted of the spine with multilevel bridging anterolateral marginal osteophyte formation. There is a scoliotic curvature of the spine. OTHER: None. IMPRESSION: MODERATE BILATERAL PLEURAL EFFUSIONS WITH COMPRESSIVE ATELECTASIS OF THE LOWER LUNGS BILATERALLY.
--- NOTE | 2018-01-16 16:14 | PN ---
Subjective Date of Service: 01/16/18 Interval History: Ms. Villeda feels good and anxious to go home. She did have a fever to 100.4 overnight. Oxygen was able to be weaned off. She has no shortness of breath, no chest pain. Her nurse reports that she needed full assistance to get up. She normally walks from her room at [facility] to the dining room unassisted. Ms. Villeda herself has no complaints. I came back to talk with her daughter when she arrived, and she says the sundowning she observed last night is much different than usual for her mom. Family History: Unchanged from Admission Social History: Unchanged from Admission Past Medical History: Unchanged from Admission Objective Active Medications: Acetaminophen (Tylenol Tab*) 650 mg PO Q4H PRN PRN Reason: FEVER/PAIN Last Admin: 01/14/18 11:50 Dose: 650 mg Amlodipine Besylate (Norvasc Tab*) 5 mg PO DAILY [facility] Last Admin: 01/16/18 07:41 Dose: 5 mg Aspirin (Aspirin Ec Tab*) 81 mg PO DAILY [facility] Last Admin: 01/16/18 07:41 Dose: 81 mg Colesevelam HCl (Welchol(Nf)) 1,250 mg PO BID [facility] Last Admin: 01/16/18 07:41 Dose: Not Given Furosemide (Lasix Tab*) 20 mg PO DAILY [facility] Last Admin: 01/16/18 07:41 Dose: 20 mg Heparin Sodium (Porcine) (Heparin Vial(*)) 5,000 units SUBCUT Q8HR [facility] Last Admin: 01/16/18 13:40 Dose: 5,000 units Ceftriaxone Sodium 1 gm/ (Sodium Chloride) 50 mls @ 200 mls/hr IVPB Q24H [facility] Last Admin: 01/15/18 22:59 Dose: 200 mls/hr Azithromycin 500 mg/ Sodium (Chloride) 250 mls @ 250 mls/hr IVPB Q24H [facility] Last Admin: 01/15/18 21:00 Dose: 250 mls/hr Levothyroxine Sodium (Synthroid Tab*) 37.5 mcg PO DAILY@0600 [facility] Last Admin: 01/16/18 05:12 Dose: 37.5 mcg Metoprolol Succinate (Toprol Xl Tab*) 100 mg PO DAILY [facility] Last Admin: 01/16/18 07:41 Dose: 100 mg Mirabegron (Myrbetriq (Nf)) 50 mg PO DAILY [facility] Last Admin: 01/16/18 07:42 Dose: Not Given Nystatin (Nystatin Top Powder*) 1 applic TOPICAL TID [facility] Last Admin: 01/16/18 13:41 Dose: 1 applic Solifenacin (Vesicare(Nf)) 5 mg PO DAILY [facility] Last Admin: 01/16/18 07:41 Dose: 5 mg Oxygen Devices in Use Now: Nasal Cannula Appearance: alert, sitting up in chair, well appearing. Eyes: No Scleral Icterus Ears/Nose/Mouth/Throat: NL Teeth, Lips, Gums Neck: - - cannot see jugular vein Respiratory: - - decreased breath sounds both bases Cardiovascular: NL Sounds; No Murmurs; No JVD, RRR Abdominal: NL Sounds; No Tenderness; No Distention Lymphatic: No Cervical Adenopathy Extremities: - - edema b/l, R>L with chronic skin changes Neurological: - - oriented to person and place and situation; thinks it is 1927 Result Diagrams: 01/16/18 11:36 01/16/18 11:36 Microbiology and Other Data: Microbiology 01/12/18 23:45 Legionella Urinary Antigen - Final Urine Negative Legionella Antigen Streptococcus pneumoniae Ag Screen - Final Negative S. pneumo Antigen 01/12/18 23:45 Nasal Screen MRSA (PCR) - Final Nasal Mrsa Detected Assess/Plan/Problems-Billing Assessment: Ms. Villeda is an 87 year old female with PMH significant for hypothyroidism, systolic heart failure, coronary artery disease, and lymphedema who presented to the ED with weakness and was thought to have pneumonia. Today, however, she is still unable to walk despite 4 days of antibiotics and is found to have a markedly elevated CRP and bilateral pleural effusions. - Patient Problems (1) Weakness of both legs Current Visit: No Status: Acute Priority: High Onset Date: 04/16/14 Code (s): M62.81 - MUSCLE WEAKNESS (GENERALIZED) SNOMED Code(s): 2154620 Comment: As noted, she remains far from her baseline and I am concerned that there is a process other than pneumonia causing this I checked a repeat CRP today to compare to admission because I was unclear about pneumonia since both pulmonary angles were obscured, but the marked elevation in CRP may suggest an inflammatory myopathy I am adding MICHAEL, LDH, CK, aldolase to tomorrow's labs A cardiac etiology of her inflammation and weakness is also on the differential , and I think a TTE is warranted tomorrow since her ef was 35% in 2014 Also on the differential is a neurologic cause--a Ct head was negative at admission; will consider an MRI if other work up is negative (2) Pleural effusion Current Visit: Yes Status: Acute Code(s): J90 - PLEURAL EFFUSION, NOT ELSEWHERE CLASSIFIED SNOMED Code(s): 21553262 Comment: Repeat CXR this morning was unchanged from admission, which was concerning to me since she has received 4 days of IV antibiotics, so I checked a CT chest, which shows moderate b/l pleural effusions. The etiology of this remains broad, but certainly cardiac is high on the differential, so I am rechecking a TTE tomorrow Given the very elevated CRP, and inflammatory cause should be considered and we may need a thoracentesis to work this up I will trial IV diuresis today (3) Chronic systolic heart failure Current Visit: Yes Status: Acute Code(s): I50.22 - CHRONIC SYSTOLIC ( CONGESTIVE) HEART FAILURE SNOMED Code(s): 176499349 Comment: Her volume exam is very challenging -- I do not note significant JVP Her weight is at baseline (4) Acute respiratory failure with hypoxia Current Visit: Yes Status: Acute Code(s): J96.01 - ACUTE RESPIRATORY FAILURE WITH HYPOXIA SNOMED Code(s): 39814775 Comment: wean O2 today likely related to pleural effusions (5) Coronary artery disease Current Visit: Yes Status: Acute Code(s): I25.10 - ATHSCL HEART DISEASE OF [place] CORONARY ARTERY W/O ANG PCTRS SNOMED Code(s): 48207096 Comment: noted. troponins negative x 3 at admission. Status and Disposition: Inpatient. Discharge when medically stable, suspect she will need MIRIAM.
[2018-01-16] MEDS: Azithromycin IV(*) 500 MG in NS 0.9% 250 ML* 250 ML IVPB SCH (21:00)
[2018-01-16] MEDS: cefTRIAXone(*) 1 GM in NS 0.9% 50 ML* 50 ML IVPB SCH (23:05)
[2018-01-17] MEDS: Levothyroxine TAB* 75 MCG TAB PO SCH (05:25)
[2018-01-17] MEDS: Heparin VIAL(*) 5000 UNITS/ML VIAL (FIVE THOUSAND) SUBCUT SCH ×3 (05:26→22:41)
[2018-01-17 06:25] LABS: ABS Basophils 0.1 10^3/ul (0-0.2); ABS Eosinophils 0.2 10^3/ul (0-0.6); ABS Monocytes 1.2 10^3/ul (0-0.8); ABS Neutrophils 5.8 10^3/ul (1.5-7.7); ABS Nucleated RBC 0 10^3/ul; Eosinophil % 2.1 % (0-6); Hematocrit 33 % (35-47); Hemoglobin 10.9 g/dl (12.0-16.0); Lymphocyte % 11.8 % (25-47); Mean Corpuscular HGB Conc 33 g/dl (31-36); Mean Corpuscular Hemoglobin 30 pg (27-31); Mean Corpuscular Volume 91 fL (80-97); Mean Platelet Volume 9.1 um3 (7.4-10.4); Nucleated Red Blood Cells % 0; Platelet Count 167 10^3/ul (150-450); Red Cell Distribution Width 15 % (10.5-15); White Blood Count 8.2 10^3/ul (3.5-10.8)
[2018-01-17 06:43] LABS: EGFR Non-African American 66.1 (>60)
[2018-01-17] MEDS: Furosemide TAB* 20 MG PO SCH (08:21)
[2018-01-17] MEDS: Metoprolol Succinate XL TAB* 100 MG PO SCH (08:21)
[2018-01-17] MEDS: CMC:Solifenacin(NF) 5 MG TAB PO SCH (08:22)
[2018-01-17] MEDS: Aspirin EC TAB* 81 MG TAB.EC PO SCH (08:22)
[2018-01-17] MEDS: amLODIPine TAB* 5 MG PO SCH (08:22)
[2018-01-17] MEDS: Colesevelam(NF) 625 MG TAB PO SCH ×2 (08:27→22:41)
[2018-01-17] MEDS ORDERED: Furosemide IV* 10 MG/ML 2 ML VIAL (20 MG) IV ONE (08:28)
[2018-01-17] MEDS: Mirabegron (NF) 50 MG TAB PO SCH (08:28)
--- NOTE | 2018-01-17 08:44 | PN ---
Subjective Date of Service: 01/17/18 Interval History: Ms. Villeda is sitting up in the chair eating breakfast, but says she doesn't have much appetite, she doesn't usually eat breakfast. She feels good and wants to go home. She is upset that I didn't discharge her yesterday. She denies shortness of breath, orthopnea, chest pain, palpitations, nausea, or any pain. RN reports still having to use the "sit to stand" to move her from the bed to the chair. Family History: Unchanged from Admission Social History: Unchanged from Admission Past Medical History: Unchanged from Admission Objective Active Medications: Acetaminophen (Tylenol Tab*) 650 mg PO Q4H PRN PRN Reason: FEVER/PAIN Last Admin: 01/14/18 11:50 Dose: 650 mg Amlodipine Besylate (Norvasc Tab*) 5 mg PO DAILY [facility] Last Admin: 01/17/18 08:22 Dose: 5 mg Aspirin (Aspirin Ec Tab*) 81 mg PO DAILY [facility] Last Admin: 01/17/18 08:22 Dose: 81 mg Colesevelam HCl (Welchol(Nf)) 1,250 mg PO BID [facility] Last Admin: 01/17/18 08:27 Dose: Not Given Furosemide (Lasix Iv*) 20 mg IV DAILY ONE Stop: 01/17/18 08:29 Heparin Sodium (Porcine) (Heparin Vial(*)) 5,000 units SUBCUT Q8HR [facility] Last Admin: 01/17/18 05:26 Dose: 5,000 units Ceftriaxone Sodium 1 gm/ (Sodium Chloride) 50 mls @ 200 mls/hr IVPB Q24H [facility] Last Admin: 01/16/18 23:05 Dose: 200 mls/hr Azithromycin 500 mg/ Sodium (Chloride) 250 mls @ 250 mls/hr IVPB Q24H [facility] Last Admin: 01/16/18 21:00 Dose: 250 mls/hr Levothyroxine Sodium (Synthroid Tab*) 37.5 mcg PO DAILY@0600 [facility] Last Admin: 01/17/18 05:25 Dose: 37.5 mcg Metoprolol Succinate (Toprol Xl Tab*) 100 mg PO DAILY [facility] Last Admin: 01/17/18 08:21 Dose: 100 mg Mirabegron (Myrbetriq (Nf)) 50 mg PO DAILY [facility] Last Admin: 01/17/18 08:28 Dose: Not Given Nystatin (Nystatin Top Powder*) 1 applic TOPICAL TID [facility] Last Admin: 01/16/18 21:00 Dose: 1 applic Solifenacin (Vesicare(Nf)) 5 mg PO DAILY [facility] Last Admin: 01/17/18 08:22 Dose: 5 mg Vital Signs - 8 hr 01/17/18 04:07 Temperature 98.1 F Pulse Rate 83 Respiratory 18 Rate Blood Pressure 126/57 (mmHg) O2 Sat by Pulse 90 Oximetry Oxygen Devices in Use Now: None Appearance: alert, sitting in the chair comfortably Eyes: No Scleral Icterus Ears/Nose/Mouth/Throat: NL Teeth, Lips, Gums Neck: NL Appearance and Movements; NL JVP, - - cannot see jugular vein Respiratory: - - decreased breath sounds at both bases, worse at the right Cardiovascular: NL Sounds; No Murmurs; No JVD, RRR Abdominal: NL Sounds; No Tenderness; No Distention Lymphatic: No Cervical Adenopathy Extremities: - - b/l nonpitting edema Skin: - - macular rash on right pena Neurological: - - oriented x 2, asks inappropriate questions occasionally. strength is 5/5 in all extremities, in both proximal and distal muscle groups. Result Diagrams: 01/17/18 06:00 01/17/18 06:00 Microbiology and Other Data: Microbiology 01/12/18 23:45 Legionella Urinary Antigen - Final Urine Negative Legionella Antigen Streptococcus pneumoniae Ag Screen - Final Negative S. pneumo Antigen 01/12/18 23:45 Nasal Screen MRSA (PCR) - Final Nasal Mrsa Detected Assess/Plan/Problems-Billing Assessment: Ms. Villeda is an 87 year old female with PMH significant for hypothyroidism, systolic heart failure, coronary artery disease, and lymphedema who presented to the ED with weakness and was thought to have pneumonia. Now found to have a markedly elevated CRP and bilateral pleural effusions. - Patient Problems (1) Weakness of both legs Current Visit: No Status: Acute Priority: High Onset Date: 04/16/14 Code (s): M62.81 - MUSCLE WEAKNESS (GENERALIZED) SNOMED Code(s): 3471267 Comment: Objectively her strength in all extremities is 5/5, however she has been unable to get out of bed. At baseline she is able to walk from her room at [facility] to the dining room 3 x per day. Markedly elevated CRP and ESR raises the question of an inflammatory myopathy or vasculitis as the etiology of her weakness. A cardiac etiology of her inflammation and weakness is also on the differential , and I think a TTE is warranted today since her ef was 35% in 2014 Also on the differential is a neurologic cause--a Ct head was negative at admission; would consider an MRI if other work up is negative (2) Pleural effusion Current Visit: Yes Status: Acute Code(s): J90 - PLEURAL EFFUSION, NOT ELSEWHERE CLASSIFIED SNOMED Code(s): 41730337 Comment: The etiology of this remains broad, but certainly cardiac is high on the differential, so I am rechecking a TTE tomorrow Given the very elevated CRP, and inflammatory cause should be considered and we may need a thoracentesis to work this up I will trial IV diuresis today (3) Chronic systolic heart failure Current Visit: Yes Status: Acute Code(s): I50.22 - CHRONIC SYSTOLIC ( CONGESTIVE) HEART FAILURE SNOMED Code(s): 318676713 Comment: Her volume exam is very challenging -- I do not note significant JVP Her weight is at baseline (4) Acute respiratory failure with hypoxia Current Visit: Yes Status: Acute Code(s): J96.01 - ACUTE RESPIRATORY FAILURE WITH HYPOXIA SNOMED Code(s): 75500864 Comment: wean O2 today likely related to pleural effusions initially was thought to have CAP; discontinue abx today--has received 5 days (5) Coronary artery disease Current Visit: Yes Status: Acute Code(s): I25.10 - ATHSCL HEART DISEASE OF [place] CORONARY ARTERY W/O ANG PCTRS SNOMED Code(s): 65393834 Comment: noted. troponins negative x 3 at admission. Status and Disposition: Inpatient. Needs STR.
[2018-01-17] MEDS: Nystatin TOP POWDER* 15 GM BTL TOPICAL SCH ×3 (12:26→22:41)
[2018-01-17] MEDS ORDERED: QUEtiapine TAB* 25 MG PO ONE (17:43)
--- NOTE | 2018-01-17 20:21 | RAD ---
EXAM: US Duplex Bilateral Lower Extremity Veins CLINICAL HISTORY: 87 years old, female; Signs and symptoms; Lymphedema; Lower extremity, bilateral; Additional info: Rule out dvt TECHNIQUE: Real-time duplex ultrasound scan of the bilateral lower extremity veins integrating B-mode two-dimensional vascular structure, Doppler spectral analysis, color flow Doppler imaging and compression. COMPARISON: US LE VEIN L VL LOWER EXT VEINS LEFT 01/13/2014 2:10 PM FINDINGS: Right deep veins: Unremarkable. No DVT in the right common femoral, femoral, proximal deep femoral or popliteal veins. The veins demonstrate normal color flow, are normally compressible, with normal phasic flow and/or augmentation response. Right superficial veins: Unremarkable. No thrombus in the visualized right great saphenous vein. Left deep veins: Unremarkable. No DVT in the left common femoral, femoral, proximal deep femoral or popliteal veins. The veins demonstrate normal color flow, are normally compressible, with normal phasic flow and/or augmentation response. Left superficial veins: Unremarkable. No thrombus in the visualized left great saphenous vein. Soft tissues: Diffuse lymphedema. No popliteal cyst. IMPRESSION: No deep venous thrombosis.
[2018-01-17] MEDS ORDERED: Haloperidol INJ IV/IM* 5 MG/ML AMP IV ONE (22:32)
[2018-01-18] MEDS: Levothyroxine TAB* 75 MCG TAB PO SCH (05:47)
[2018-01-18] MEDS: Heparin VIAL(*) 5000 UNITS/ML VIAL (FIVE THOUSAND) SUBCUT SCH ×3 (05:48→21:19)
[2018-01-18 07:10] LABS: ABS Basophils 0.1 10^3/ul (0-0.2); ABS Eosinophils 0.2 10^3/ul (0-0.6); ABS Lymphocytes 0.9 10^3/ul (1.0-4.8); ABS Monocytes 0.9 10^3/ul (0-0.8); ABS Neutrophils 4.2 10^3/ul (1.5-7.7); ABS Nucleated RBC 0 10^3/ul; Hematocrit 34 % (35-47); Hemoglobin 11.4 g/dl (12.0-16.0); Mean Corpuscular HGB Conc 33 g/dl (31-36); Mean Corpuscular Hemoglobin 31 pg (27-31); Mean Corpuscular Volume 92 fL (80-97); Mean Platelet Volume 8.7 um3 (7.4-10.4); Nucleated Red Blood Cells % 0.1; Platelet Count 179 10^3/ul (150-450); Red Blood Count 3.74 10^6/ul (4.00-5.40); Red Cell Distribution Width 15 % (10.5-15); White Blood Count 6.2 10^3/ul (3.5-10.8)
[2018-01-18] MEDS ORDERED: Perflutren Lipid Microsphere* 3 ML VIAL ONE (08:12)
[2018-01-18] MEDS: Metoprolol Succinate XL TAB* 100 MG PO SCH (08:14)
[2018-01-18] MEDS: amLODIPine TAB* 5 MG PO SCH (08:14)
[2018-01-18] MEDS: CMC:Solifenacin(NF) 5 MG TAB PO SCH (08:14)
[2018-01-18] MEDS: Aspirin EC TAB* 81 MG TAB.EC PO SCH (08:14)
[2018-01-18] MEDS: Nystatin TOP POWDER* 15 GM BTL TOPICAL SCH ×3 (08:15→20:25)
[2018-01-18] MEDS: Mirabegron (NF) 50 MG TAB PO SCH (08:15)
[2018-01-18] MEDS: Colesevelam(NF) 625 MG TAB PO SCH ×2 (08:15→20:25)
[2018-01-18 09:38] LABS: EGFR Non-African American 66.1 (>60)
--- NOTE | 2018-01-18 11:36 | ECHO ---
Patient: LISET VILLEGAS [facility] Rec#: [id number] : 1930 Date: 01/18/2018 Age: 87y Height: 170.18 cm / 67.0 in Weight: 113.4 kg / 249.9 lbs Sex: F BSA: 2.22 Room#: 401 Admit Date#: 01/13/2018 Type: Inpatient Referring: Grazyna Crane MD Reading: Efe Rose MD Exchange Architect: Susana Abdul GABBY CC: Davis Ferguson MD Transthoracic Echocardiogram Indication: CHF BP: 121/54 HR: 70 Rhythm: NSR with PACs Findings History: CAD,OR 1996 with PCI,CHF,HTN,HLD,hytpothyroid,obesity. Technical Comments: The study is technically limited due to patient body habitus. Definity used to enhance images. Completed at 0852. Left Ventricle: The left ventricular chamber size is normal. Moderate concentric left ventricular hypertrophy is observed. There is global hypokinesis of the left ventricle with minor regional variation. There is moderately decreased left ventricular systolic function. The estimated ejection fraction is 30-35%. Abnormal left ventricular diastolic function is observed. Left Atrium: The left atrium is mildly dilated. Right Ventricle: The right ventricular global systolic function is normal. Right Atrium: The right atrium is not well visualized. Aortic Valve: The aortic valve is trileaflet. There is no evidence of aortic regurgitation. There is no evidence of aortic stenosis. Mitral Valve: The mitral valve leaflets are mildly thickened. There is moderate mitral regurgitation. There is no evidence of mitral stenosis. Tricuspid Valve: The tricuspid valve leaflets are normal. There is mild to moderate tricuspid regurgitation. There is evidence of mild pulmonary hypertension. There is no tricuspid stenosis. Pulmonic Valve: The pulmonic valve appears normal. There is trace to mild pulmonic regurgitation. There is no pulmonic stenosis. Pericardium: A pericardial fat pad is visualized. A left pleural effusion is present. There is a moderate pleural effusion. Aorta: There is no dilatation of the ascending aorta. The aortic arch is not well visualized. There is no dilation of the aortic root. Pulmonary Artery: The main pulmonary artery appears normal. Venous: The venous system is not well visualized. Contrast: Definity was used to optimize study. Intravenous contrast was used to enhance endocardial border definition. Conclusions Moderate concentric left ventricular hypertrophy is observed. There is global hypokinesis of the left ventricle with minor regional variation. There is moderately decreased left ventricular systolic function. The estimated ejection fraction is 30-35%. The right ventricular global systolic function is normal. There is no evidence of aortic stenosis. There is moderate mitral regurgitation. There is mild to moderate tricuspid regurgitation. There is evidence of mild pulmonary hypertension. A left pleural effusion is present. There is a moderate pleural effusion. Compared to study of 04/17/14, the LV function is slightly lower. Measurements Name Value Normal Range RVIDd (AP) 2D 2.3 cm (0.9 - 2.6) IVSd (2D) 1.4 cm (0.6 - 1) LVPWd (2D) 1.3 cm (0.6 - 1) LVIDd (2D) 5.1 cm (3.6 - 5.4) LVIDs (2D) 4.8 cm - LV FS (2D) 6 % (25 - 45) Aortic Annulus 1 cm (1.4 - 2.6) Ao root diameter (2D) 2.8 cm (2.1 - 3.5) Ascending Ao 2.7 cm (2.1 - 3.4) LA dimension (AP) 2D 3.9 cm (2.3 - 3.8) LAd ISD 4CH 6.4 cm (2.9 - 5.3) LA ISD 4CH W 5 cm (2.5 - 4.5) Name Value Normal Range LA ESV SP 4CH (A/L) 117 ml - LA ESV SP 2CH (A/L) 62 ml - LA ESV BP (A/L) 86 ml - LA ESV BP (A/L) index 38.61 ml/m2 - LA ESV SP 4CH (MOD) 102 ml - LA ESV SP 2CH (MOD) 57 ml - Name Value Normal Range MV E-wave Vmax 1.4 m/sec - MV deceleration time 145 msec - MV A-wave Vmax 0.6 m/sec - MV E:A ratio 2.39 ratio - LV septal e' Vmax 0.05 m/sec - LV lateral e' Vmax 0.09 m/sec - LV E:e' septal ratio 28 ratio - LV E:e' lateral ratio 15.56 ratio - Name Value Normal Range AV Vmax 1.2 m/sec - AV VTI 29.6 cm - AV peak gradient 5.76 mmHg - AV mean gradient 2.89 mmHg - LVOT Vmax 0.6 m/sec - LVOT VTI 12.8 cm - LVOT peak gradient 1.6 mmHg - LVOT mean gradient 0.79 mmHg - Name Value Normal Range MR Vmax 5.1 m/sec - MR VTI 178 cm - Name Value Normal Range TR Vmax 2.6 m/sec - TR peak gradient 27 mmHg - RAP 8 mmHg - RVSP 35 mmHg - Name Value Normal Range PV Vmax 0.8 m/sec - PV peak gradient 2.28 mmHg -
--- NOTE | 2018-01-18 16:56 | PN ---
Subjective Date of Service: 01/18/18 Interval History: Patient was seen and examined earlier today, then again this afternoon after her daughter, Jacki, came to visit. Patient reports doing well, has no complaints, anxious to go back to her "normal routine". Denies chest pain or SOB. She is more alert and oriented today. No delirious events overnight. Family History: Unchanged from Admission Social History: Unchanged from Admission Past Medical History: Unchanged from Admission Objective Active Medications: Acetaminophen (Tylenol Tab*) 650 mg PO Q4H PRN PRN Reason: FEVER/PAIN Last Admin: 01/14/18 11:50 Dose: 650 mg Amlodipine Besylate (Norvasc Tab*) 5 mg PO DAILY [facility] Last Admin: 01/18/18 08:14 Dose: 5 mg Aspirin (Aspirin Ec Tab*) 81 mg PO DAILY [facility] Last Admin: 01/18/18 08:14 Dose: 81 mg Colesevelam HCl (Welchol(Nf)) 1,250 mg PO BID [facility] Last Admin: 01/18/18 08:15 Dose: Not Given Heparin Sodium (Porcine) (Heparin Vial(*)) 5,000 units SUBCUT Q8HR [facility] Last Admin: 01/18/18 12:26 Dose: 5,000 units Levothyroxine Sodium (Synthroid Tab*) 37.5 mcg PO DAILY@0600 [facility] Last Admin: 01/18/18 05:47 Dose: 37.5 mcg Metoprolol Succinate (Toprol Xl Tab*) 100 mg PO DAILY [facility] Last Admin: 01/18/18 08:14 Dose: 100 mg Mirabegron (Myrbetriq (Nf)) 50 mg PO DAILY [facility] Last Admin: 01/18/18 08:15 Dose: Not Given Nystatin (Nystatin Top Powder*) 1 applic TOPICAL TID [facility] Last Admin: 01/18/18 12:27 Dose: 1 applic Solifenacin (Vesicare(Nf)) 5 mg PO DAILY [facility] Last Admin: 01/18/18 08:14 Dose: 5 mg Vital Signs - 8 hr 01/18/18 11:18 Temperature 98.1 F Pulse Rate 66 Respiratory 16 Rate Blood Pressure 120/59 (mmHg) O2 Sat by Pulse 94 Oximetry Oxygen Devices in Use Now: None Appearance: Appears comfortable and in NAD Eyes: No Scleral Icterus, PERRLA Ears/Nose/Mouth/Throat: Clear Oropharnyx, Mucous Membranes Moist Neck: NL Appearance and Movements; NL JVP, Trachea Midline Respiratory: Symmetrical Chest Expansion and Respiratory Effort, Clear to Auscultation Cardiovascular: NL Sounds; No Murmurs; No JVD, RRR Abdominal: NL Sounds; No Tenderness; No Distention Extremities: - - Minimal residual bilateral LE edema noted. Neurological: Alert and Oriented x 3 Result Diagrams: 01/18/18 07:01 01/18/18 07:01 Additional Lab and Data: . Microbiology and Other Data: Microbiology 01/12/18 23:45 Legionella Urinary Antigen - Final Urine Negative Legionella Antigen Streptococcus pneumoniae Ag Screen - Final Negative S. pneumo Antigen 01/12/18 23:45 Nasal Screen MRSA (PCR) - Final Nasal Mrsa Detected Diagnostic Imaging: TTE with the following conclusions: Moderate concentric left ventricular hypertrophy is observed. There is global hypokinesis of the left ventricle with minor regional variation. There is moderately decreased left ventricular systolic function. The estimated ejection fraction is 30-35%. The right ventricular global systolic function is normal. There is no evidence of aortic stenosis. There is moderate mitral regurgitation. There is mild to moderate tricuspid regurgitation. Patient Name: LISET VILLEDA Medical Record#: [id number] Ordering Physician: Grazyna Crane DO Acct.#: [id number] ADM Status : ADM IN Order Information: VL LOWER EXT VEINS BILATERAL Accession Number: [id number] IMPRESSION: No deep venous thrombosis. <Electronically signed by Eleuterio Devries MD in OV> 01/17/182019 EKG Data: . Assess/Plan/Problems-Billing Assessment: Ms. Villeda is an 87 year old female with PMH significant for hypothyroidism, systolic heart failure, coronary artery disease, and lymphedema who presented to the ED with weakness and was thought to have pneumonia. Now found to have a markedly elevated CRP and bilateral pleural effusions. - Patient Problems (1) Acute respiratory failure with hypoxia Current Visit: Yes Status: Acute Comment: - Improved, now on room air with good O2 sats - likely related to pleural effusions - initially was thought to have CAP; Abx d/c'ed (2) Chronic systolic heart failure Current Visit: Yes Status: Acute Comment: Her volume exam is very challenging -- I do not note significant JVP Her weight is at baseline (3) Coronary artery disease Current Visit: Yes Status: Acute Comment: - noted. troponins negative x 3 at admission. (4) Weakness of both legs Current Visit: No Status: Acute Comment: Objectively her strength in all extremities is 5/5, however she has been unable to get out of bed. At baseline she is able to walk from her room at [facility] to the dining room 3 x per day. Markedly elevated CRP and ESR raises the question of an inflammatory myopathy or vasculitis as the etiology of her weakness. A cardiac etiology of her inflammation and weakness is also on the differential , and I think a TTE is warranted today since her ef was 35% in 2014 Also on the differential is a neurologic cause--a Ct head was negative at admission; would consider an MRI if other work up is negative (5) Pleural effusion Current Visit: Yes Status: Acute Comment: The etiology of this remains broad, but certainly cardiac is high on the differential, TTE done today with no significant changes compared to previous sudty in 2014 Given the very elevated CRP, and inflammatory cause should be considered and we may need a thoracentesis to work this up Will continue diuresis, given clinical improvement Spoke with her daughter, Jacki, and offered proceeding with thoracocentesis for further assessment. - Patient clinically improving, CRP continues to trend down, daughter refused invasive procedure, would like to repeat test tomorrow. - If continues to improve with diuresis, it's likely a cardiac etiology. - Plan still for discharge to [facility] tomorrow for STR (6) DVT prophylaxis Current Visit: Yes Status: Acute Comment: - HSQ (7) DNR (do not resuscitate) Current Visit: Yes Status: Acute Comment: Status and Disposition: Inpatient. Anticipate discharge to [facility] for STR tomorrow.
[2018-01-18] MEDS ORDERED: Magnesium Sulfate 1 GM IV* 1 GM/100 ML BAG IV ONE (17:39)
[2018-01-19] MEDS: Heparin VIAL(*) 5000 UNITS/ML VIAL (FIVE THOUSAND) SUBCUT SCH ×2 (05:41→14:03)
[2018-01-19] MEDS: Levothyroxine TAB* 75 MCG TAB PO SCH (05:41)
[2018-01-19] MEDS: CMC:Solifenacin(NF) 5 MG TAB PO SCH (08:35)
[2018-01-19] MEDS: Aspirin EC TAB* 81 MG TAB.EC PO SCH (08:35)
[2018-01-19] MEDS: Colesevelam(NF) 625 MG TAB PO SCH (08:35)
[2018-01-19] MEDS: Mirabegron (NF) 50 MG TAB PO SCH (08:35)
[2018-01-19] MEDS: Metoprolol Succinate XL TAB* 100 MG PO SCH (08:35)
[2018-01-19] MEDS: amLODIPine TAB* 5 MG PO SCH (08:35)
[2018-01-19] MEDS: Nystatin TOP POWDER* 15 GM BTL TOPICAL SCH ×2 (08:36→14:03)
[2018-01-19 12:08] VITALS: BP 135/60
--- NOTE | 2018-01-19 12:09 | DS ---
AMENDED REPORT NOW INCLUDES COSIGNER DESIGNATION - ESIGNED BEFORE ADJUSTMENT CC: Dr. Davis Ferguson * DISCHARGE SUMMARY: DATE OF ADMISSION: 01/12/18 DATE OF DISCHARGE: 01/19/18 PATIENT OF ADMITTING HOSPITALIST: Dr. Mor Avila. ATTENDING HOSPITALIST WHILE PATIENT HERE: Dr. Lorraine Garrido.* (DICTATED BY SAMEER JIMENES) PRIMARY CARE PROVIDER: Dr. Davis Ferguson. ADMISSION DIAGNOSES: 1. Confusion. 2. Hypothyroidism. 3. Congestive heart failure. 4. Hypertension. 5. Hyperlipidemia. 6. Coronary artery disease. DISCHARGE DIAGNOSES: 1. Confusion. 2. Hypothyroidism. 3. Congestive heart failure. 4. Hypertension. 5. Hyperlipidemia. 6. Coronary artery disease. 7. Bilateral pleural effusion. 8. Elevated inflammatory markers. CONSULTATIONS: None. PROCEDURES: None. HISTORY OF PRESENT ILLNESS: Ms. Villeda is an 87-year-old female whose past medical history is significant for hypothyroidism, CHF, hypertension, hyperlipidemia, and coronary artery disease, who has been in her usual state of health, living in [facility] [place]. The patient's daughter states that she received a call from the [facility] with increased confusion to her mom. Per her daughter, the patient has never experienced any delusional thoughts or confusion during her talk. She felt weak and was unable to walk using her feet. She was transferred via ambulance to the emergency room for further evaluation. The patient denied any chest pain; however, she has some mild shortness of breath at baseline. She denied any cough, fever, urinary symptoms, or any other associated symptoms. She had laboratory workup in the ED that showed no evidence of leukocytosis and she was afebrile with EKG showing sinus bradycardia. Her brain CT showed no evidence of intracranial pathology and chest x-ray showed possibility of right lower lobe infiltrates for which we were asked to see the patient to consider admission for treatment of possible pneumonia. HOSPITAL COURSE: The patient was admitted on 01/12/18 under hospitalist services. She had repeated laboratory workup that revealed resolution of her leukocytosis; however, her inflammatory markers including ESR and CRP were markedly elevated. She continued to receive treatment with antibiotic presuming a community-acquired pneumonia with hypoxia. She was on oxygen supplement using nasal cannula that gradually titrated until the patient was able to maintain good saturation at room air. Her Strep pneumo and legionella antigen were negative. She was noted to have elevated BNP consistent with CHF for which she started to take Lasix with good diuresis. She continued to improve clinically on a daily basis. She denied any shortness of breath and would like to be discharged to home. We had a long conversation with her daughter, Jacki , who has been involved with her mother's care, that initial plans were for her to be discharged to short-term rehab facility. I discussed with her daughter proceeding with thoracocentesis given the finding of her pleural effusion on her chest CT. They elected to avoid any invasive procedure at this point. Her laboratory workup was checked on a daily basis and her CRP was noted to be trending down every day. She remained afebrile, and Physical Therapy and Occupational Therapy were consulted as well. The patient continued to have some weakness with ambulation;however, she denied any joint pain or injury. She continued to improve clinically every day. She had a transthoracic echocardiogram that showed no significant changes since previous study done in 2013. She had bilateral chronic left lower extremity swelling likely from her chronic CHF for which a venous Doppler study was done on 01/17/18 and was negative for DVT. We had another discussion with her daughter and the mental health case manager and there was a mutual agreement for the patient to be discharged to [facility] for short-term rehab. On discharge morning, her vitals were stable with temperature of 97.9, pulse of 63, blood pressure of 114/57, respirations of 16 with O2 sat of 93% on room air. Her heart was regular rate and rhythm without rubs, murmurs, or gallops. Her lungs were clear to auscultation bilaterally. Her abdomen was soft, nontender, and nondistended. Her extremities with improvement in lower extremity edema was noted. The patient will be discharged to [facility] and will follow up with primary care physician in the next week or two as scheduled. DISCHARGE MEDICATIONS: Include: 1. Tylenol 650 mg p.o. q.6 hours as needed for fever or pain. 2. Amlodipine 5 mg p.o. daily. 3. Aspirin 81 mg p.o. daily. 4. Colesevelam 1250 mg p.o. b.i.d. 5. Lasix 20 mg p.o. daily. 6. Synthroid 37.5 mcg p.o. daily. 7. Loperamide 2 mg p.o. t.i.d. p.r.n. for diarrhea. 8. Mirabegron 50 mg p.o. daily. 9. VESIcare 5 mg p.o. daily. 10. Metoprolol succinate 100 mg p.o. daily. 11. Nystatin powder applied topically to affected area as directed. SAMEER JIMENES [id number]/[id number] #: [id number] MTDD
== END 2018-01-19 14:25 | DRG 189 ==
LOC: ED 18:04 → MED 21:24 → OBSVTOIN 01-13 10:00
PROVIDERS: ADMIT Hospitalist; ATTEND Internal Medicine
DX: J96.01 Acute respiratory failure with hypoxia (principal); I50.21 Acute systolic (congestive) heart failure; I11.0 Hypertensive heart disease with heart failure; I25.10 Atherosclerotic heart disease of native coronary artery without angina pectoris; R53.1 Weakness; Z66 Do not resuscitate; I08.1 Rheumatic disorders of both mitral and tricuspid valves; E03.9 Hypothyroidism, unspecified; I89.0 Lymphedema, not elsewhere classified; R41.0 Disorientation, unspecified; Z79.1 Long term (current) use of non-steroidal anti-inflammatories (NSAID); Z79.82 Long term (current) use of aspirin; Z79.899 Other long term (current) drug therapy
CPT/HCPCS: 36415; 70450; 71045; 71250; 80048; 80053; 81003; 82140; 82550; 82728; 83605; 83615; 83735; 83880; 84145; 84443; 84484; 85025; 85610; 85652; 85730; 86038; 86140; 86141; 86431; 87040; 87641; 87899; 93005; 93306; 93970; 99284; A9270-GY; C8929; G8978-GP-CJ; G8979-GP-CH; J0456; J0696; J1644; J1940; J2270; J2543; J3475

== ENCOUNTER 2019-06-22 11:32 | Emergency (ER) | payer MEDICARE, OTHER ==
--- NOTE | 2019-06-22 11:46 | ED ---
Respiratory - HPI Summary HPI Summary: This patient is an 88 year old female brought in by EMS presenting to [facility] with a chief complaint of respiratory illness. Patient states she has a chest cold with cough. She reports congestion and fatigue. She denies chest pain and SOB. She has a Hx of CHF. Duoneb was administered to the patient by EMS en route to the hospital. Acetaminophen TAB* [Tylenol TAB*] 650 mg PO Q4H PRN 05/03/14 [History Confirmed 05/07/18] Aspirin EC TAB* [Ecotrin EC Low Dose 81 MG*] 81 mg PO DAILY 01/12/18 [History Confirmed 05/07/18] Levothyroxine TAB* [Synthroid 75 MCG TAB*] 37.5 mcg PO DAILY 01/12/18 [History Confirmed 05/07/18] Mirabegron (NF) [Myrbetriq (NF)] 50 mg PO DAILY 01/12/18 [History Confirmed ] Furosemide TAB* [Lasix TAB*] 40 mg PO DAILY tab 05/13/18 [Rx] Metoprolol Succinate XL TAB* [Toprol XL TAB*] 100 mg PO DAILY tab.xl 05/13/18 [ Rx] Potassium Chlor TAB* [Potassium Chlor TAB 20 MEQ*] 20 meq PO BID tab.er [Rx] Colesevelam HCl [Welchol] 1,250 mg PO DAILY 06/22/19 [History Confirmed 06/22/19 ] Donepezil HCL (NF) [Aricept (NF)] 10 mg PO DAILY 06/22/19 [History Confirmed 08/07] Furosemide TAB* [Lasix TAB*] 60 mg PO SEE INSTRUCTIONS 06/22/19 [History Confirmed 06/22/19] Simvastatin 40 mg PO DAILY 06/22/19 [History Confirmed 06/22/19] Valsartan 80 mg PO DAILY 06/22/19 [History Confirmed 06/22/19] - History of Current Complaint Stated Complaint: SHORT OF BREATH Time Seen by Provider: 06/22/19 11:37 Hx Obtained From: Patient Onset/Duration: Lasting Hours Character: Cough (Nonproductive) - Allergy/Home Medications Allergies/Adverse Reactions: Allergies Allergy/AdvReac Type Severity Reaction Status Date / Time No Known Allergies Allergy Verified 06/22/19 11:45 Home Medications: Home Medications Acetaminophen TAB* [Tylenol TAB*] 650 mg PO Q4H PRN 05/03/14 [History Confirmed 06/22/19] Aspirin EC TAB* [Ecotrin EC Low Dose 81 MG*] 81 mg PO DAILY 01/12/18 [History Confirmed 06/22/19] Levothyroxine TAB* [Synthroid 75 MCG TAB*] 37.5 mcg PO DAILY 01/12/18 [History Confirmed 06/22/19] Mirabegron (NF) [Myrbetriq (NF)] 50 mg PO DAILY 01/12/18 [History Confirmed 08/07] Furosemide TAB* [Lasix TAB*] 40 mg PO DAILY tab 05/13/18 [Rx Confirmed 06/22/19 ] Metoprolol Succinate XL TAB* [Toprol XL TAB*] 100 mg PO DAILY tab.xl 05/13/18 [ Rx Confirmed 06/22/19] Potassium Chlor TAB* [Potassium Chlor TAB 20 MEQ*] 20 meq PO BID tab.er [Rx Confirmed 06/22/19] Colesevelam HCl [Welchol] 1,250 mg PO DAILY 06/22/19 [History Confirmed 06/22/19 ] Donepezil HCL (NF) [Aricept (NF)] 10 mg PO DAILY 06/22/19 [History Confirmed 08/07] Furosemide TAB* [Lasix TAB*] 60 mg PO SEE INSTRUCTIONS 06/22/19 [History Confirmed 06/22/19] Simvastatin 40 mg PO DAILY 06/22/19 [History Confirmed 06/22/19] Valsartan 80 mg PO DAILY 06/22/19 [History Confirmed 06/22/19] PMH/Surg Hx/FS Hx/Imm Hx Endocrine/Hematology History: Denies: Hx Diabetes Cardiovascular History: Reports: Hx Angina, Hx Congestive Heart Failure, Hx Coronary Artery Disease, Hx Hypercholesterolemia, Hx Hypertension, Other Cardiovascular Problems/Disorders - Echoardiagram 2014-ejection fx of 35-40% Denies: Hx Myocardial Infarction, Hx Valvular Heart Disease Respiratory History: Denies: Hx Asthma, Hx Chronic Obstructive Pulmonary Disease (COPD) History: Denies: Hx Renal Disease Musculoskeletal History: Reports: Other Musculoskeletal History - Osteoarthritis , bilateral lower extremity pitting edema Sensory History: Reports: Hx Contacts or Glasses Denies: Hx Hearing Aid Opthamlomology History: Reports: Hx Contacts or Glasses Neurological History: Reports: Hx Dementia, Other Neuro Impairments/Disorders - PT HAS TREMORS, VISIBLE - Surgical History Surgery Procedure, Year, and Place: EYE SURGERY (CATARACTS?). CARDIAC STENT Hx Anesthesia Reactions: No Infectious Disease History: Reports: Hx of Known/Suspected MRSA - current contact for MRSA - Family History Known Family History: Positive: Cardiac Disease - Social History Alcohol Use: None Hx Substance Use: No Substance Use Type: Reports: None Hx Tobacco Use: Yes Smoking Status (MU): Former Smoker Review of Systems Positive: Other - Congestion Negative: Chest Pain Positive: Cough. Negative: Shortness Of Breath All Other Systems Reviewed And Are Negative: Yes Physical Exam - Summary Physical Exam Summary: Constitutional: Well-developed, Well-nourished, Alert. (-) Distressed Skin: Warm, Dry HENT: Normocephalic; Atraumatic Eyes: Conjunctiva normal Neck: Musculoskeletal ROM normal neck. (-) JVD, (-) Stridor, (-) Tracheal deviation Cardio: Rhythm regular, rate normal, Heart sounds normal; Intact distal pulses; The pedal pulses are 2+ and symmetric. Radial pulses are 2+ and symmetric. (-) Murmur Pulmonary/Chest wall: Effort normal. (-) Respiratory distress, bilateral coast breath sounds and wheezing, (-) Rales Abd: Soft, (-) tenderness, (-) Distension, (-) Guarding, (-) Rebound Musculoskeletal: Bilatearl Edema lower extremities Lymph: (-) Cervical adenopathy Neuro: Alert, Oriented x3. Resting tremors. Psych: Mood and affect Normal Triage Information Reviewed: Yes Vital Signs On Initial Exam: Acetaminophen TAB* [Tylenol TAB*] 650 mg PO Q4H PRN 05/03/14 [History Confirmed 05/07/18] Aspirin EC TAB* [Ecotrin EC Low Dose 81 MG*] 81 mg PO DAILY 01/12/18 [History Confirmed 05/07/18] Levothyroxine TAB* [Synthroid 75 MCG TAB*] 37.5 mcg PO DAILY 01/12/18 [History Confirmed 05/07/18] Mirabegron (NF) [Myrbetriq (NF)] 50 mg PO DAILY 01/12/18 [History Confirmed ] Furosemide TAB* [Lasix TAB*] 40 mg PO DAILY tab 05/13/18 [Rx] Metoprolol Succinate XL TAB* [Toprol XL TAB*] 100 mg PO DAILY tab.xl 05/13/18 [ Rx] Potassium Chlor TAB* [Potassium Chlor TAB 20 MEQ*] 20 meq PO BID tab.er [Rx] Colesevelam HCl [Welchol] 1,250 mg PO DAILY 06/22/19 [History Confirmed 06/22/19 ] Donepezil HCL (NF) [Aricept (NF)] 10 mg PO DAILY 06/22/19 [History Confirmed 08/07] Furosemide TAB* [Lasix TAB*] 60 mg PO SEE INSTRUCTIONS 06/22/19 [History Confirmed 06/22/19] Simvastatin 40 mg PO DAILY 06/22/19 [History Confirmed 06/22/19] Valsartan 80 mg PO DAILY 06/22/19 [History Confirmed 06/22/19] Vital Signs Reviewed: Yes Procedures - Sedation Patient Received Moderate/Deep Sedation with Procedure: No Diagnostics - Laboratory Result Diagrams: 06/22/19 11:55 06/22/19 11:55 Lab Statement: Any lab studies that have been ordered have been reviewed, and results considered in the medical decision making process. - Radiology CXR Radiology Interpretation Completed By: Radiologist Summary of Radiographic Findings: Cardiomegaly. ED Provider has reviewed this report. - EKG 1156 Cardiac Rate: Other Rate - afib with rate of 54 BPM EKG Rhythm: Atrial Fibrillation Summary of EKG Findings: No ischemic changes. ED Physician has reviewed and interpreted this EKG. Disposition - Course Course Of Treatment: This patient is an 88 year old female presenting to [facility] with a chief complaint of respiratory illness. Patient states she has a chest cold with cough. She reports congestion and fatigue. She denies chest pain and SOB. Dr. Whittaker, Hospitalist, accepted the patient for admission. Labs reveal MCH 33 H, Plt Count 107 L, INR 1.23 H, BUN/Creatinine Ratio 25.3 H, Glucose 127 H, Magnesium 1.8 L Troponin I 0.03 H, BNP 1061 H, Albumin/Globulin Ratio 0.9L. CXR reveals cardiomegaly. EKG showed afib with rate of 54 BPM, no ischemic changes. Patient was discharged to home and will followup with PCP. Initially discussed admission with patient for CHF exacerbation, patient states that she has an agreement that she is willing to be seen in the ED ED for "treatment" when she needs, however she is not willing to be admitted. Patient notes that her daughter as well as residential "understands this agreement". - Diagnoses Provider Diagnoses: CHF (congestive heart failure) Discharge ED - Sign-Out/Discharge Documenting (check all that apply): Patient Departure - DISCHARGE - Discharge Plan Condition: Stable Disposition: HOME Patient Education Materials: Heart Failure (ED) Referrals: Davis Ferguson MD [Primary Care Provider] - 3 Days Additional Instructions: PLEASE RETURN TO ED FOR ANY NEW OR CONCERNING SYMPTOMS. PLEASE FOLLOW UP WITH YOUR PRIMARY CARE PHYSICIAN WITHIN THREE DAYS. - Billing Disposition and Condition Condition: STABLE Disposition: Home - Attestation Statements Document Initiated by Radha: Yes Documenting Scribe: Raghavendra Levi Provider For Whom Radha is Documenting (Include Credential): Yony Forbes DO Scribe Attestation: Raghavendra Castillo scribed for Yony Forbes DO on 10/07 at 1007. Scribe Documentation Reviewed: Yes Provider Attestation: The documentation as recorded by the Raghavendra baltazar accurately reflects the service I personally performed and the decisions made by Yony ray DO Status of Scribhernan Document: Viewed
[2019-06-22 12:05] LABS: ABS Basophils 0.1 10^3/ul (0-0.2); ABS Eosinophils 0.1 10^3/ul (0-0.6); ABS Lymphocytes 1.1 10^3/ul (1.0-4.8); ABS Monocytes 0.7 10^3/ul (0-0.8); ABS Neutrophils 2.6 10^3/ul (1.5-7.7); Eosinophil % 2.8 %; Hematocrit 39 % (35-47); Hemoglobin 13.2 g/dL (12.0-16.0); Lymphocyte % 24.1 %; Mean Corpuscular HGB Conc 34 g/dL (31-36); Mean Corpuscular Hemoglobin 33 pg (27-31); Mean Corpuscular Volume 96 fL (80-97); Mean Platelet Volume 9.7 fL (7.4-10.4); Nucleated Red Blood Cells % 0.1; Platelet Count 107 10^3/uL (150-450); Red Blood Count 4.05 10^6 /uL (3.70-4.87); Red Cell Distribution Width 15 % (10-15); White Blood Count 4.5 10^3/uL (3.5-10.8)
[2019-06-22 12:12] LABS: INR 1.23 (0.82-1.09)
[2019-06-22 12:30] LABS: ALT 15 U/L (7-52); AST 25 U/L (13-39); Albumin 3.5 g/dL (3.2-5.2); Albumin/Globulin Ratio 0.9 (1-3); Alkaline Phosphatase 56 U/L (34-104); Anion Gap 6 mmol/L (2-11); BUN/Creatinine Ratio 25.3 (8-20); Blood Urea Nitrogen 24 mg/dL (6-24); CO2 Carbon Dioxide 28 mmol/L (22-32); Calcium 8.7 mg/dL (8.6-10.3); Chloride 101 mmol/L (101-111); EGFR African American 67.3 (>60); EGFR Non-African American 55.6 (>60); Globulin 3.7 g/dL (2-4); Glucose 137 mg/dL (70-100); Magnesium 1.8 mg/dL (1.9-2.7); Potassium 4.4 mmol/L (3.5-5.0); Sodium 135 mmol/L (135-145); Total Protein 7.2 g/dL (6.4-8.9)
[2019-06-22 12:31] LABS: Troponin I 0.03 ng/mL (<0.03)
[2019-06-22 12:58] LABS: Influenza A Molecular Negative (Negative); Influenza B Molecular Negative (Negative)
[2019-06-22] MEDS ORDERED: Furosemide IV* 10 MG/ML VIAL (40 MG) IV ONE (13:54)
[2019-06-22 14:42] VITALS: BP 151/89
== END 2019-06-22 15:13 | disposition home or self-care (01) ==
LOC: ED 11:32
DX: I11.0 Hypertensive heart disease with heart failure (principal); I50.9 Heart failure, unspecified; I48.91 Unspecified atrial fibrillation; R53.83 Other fatigue; R09.89 Other specified symptoms and signs involving the circulatory and respiratory systems; R05 Cough; E78.00 Pure hypercholesterolemia, unspecified; F03.90 Unspecified dementia, unspecified severity, without behavioral disturbance, psychotic disturbance, mood disturbance, and anxiety; Z95.5 Presence of coronary angioplasty implant and graft; Z79.82 Long term (current) use of aspirin; Z87.891 Personal history of nicotine dependence
CPT/HCPCS: 36415; 71045; 80053; 83735; 83880; 84484; 85025; 85610; 93005; 99283; J1940

== ENCOUNTER 2019-06-28 17:27 | Inpatient (IN) | payer MEDICARE, OTHER ==
[2019-06-28] MEDS ORDERED: Albuterol/Ipratropium NEB.SOL* Albuterol 2.5 MG/Ipratropium 0.5 MG 3 ML INH ONE (17:36)
--- NOTE | 2019-06-28 17:38 | ED ---
Shortness of Breath - HPI Summary HPI Summary: 88 year old F w CHF presenting to [facility] via EMS with a chief complaint of shortness of breat and, and nausea since earlier today. Patient reports that she does not feel short of breath but per EMS she was hypoxic on room air on their arrival (in 80s). She was seen by her PCP earlier today and reportedly deteriorated after her appointment. She has a history of CHF, recently seen in ED for SOB and declined admission. Reports persistent cough. Has baseline tremors. She is a DNR/DNI. Medication list reviewed. Allergy list reviewed. - History of Current Complaint Time Seen by Provider: 06/28/19 17:32 Hx Obtained From: EMS Onset/Duration: Gradual Onset Timing: Constant Aggravating Factors: Nothing Alleviating Factors: Nothing - Allergy/Home Medications Allergies/Adverse Reactions: Allergies Allergy/AdvReac Type Severity Reaction Status Date / Time No Known Allergies Allergy Verified 06/22/19 11:45 Home Medications: Home Medications Acetaminophen TAB* [Tylenol TAB*] 650 mg PO Q6HR PRN 05/03/14 [History Confirmed 06/28/19] Aspirin EC TAB* [Ecotrin EC Low Dose 81 MG*] 81 mg PO DAILY 01/12/18 [History Confirmed 06/28/19] Levothyroxine TAB* [Synthroid 75 MCG TAB*] 37.5 mcg PO DAILY 01/12/18 [History Confirmed 06/28/19] Mirabegron (NF) [Myrbetriq (NF)] 50 mg PO DAILY 01/12/18 [History Confirmed 02/06] Furosemide TAB* [Lasix TAB*] 40 mg PO DAILY tab 05/13/18 [Rx Confirmed 06/28/19 ] Metoprolol Succinate XL TAB* [Toprol XL TAB*] 100 mg PO DAILY tab.xl 05/13/18 [ Rx Confirmed 06/28/19] Potassium Chlor TAB* [Potassium Chlor TAB 20 MEQ*] 20 meq PO BID tab.er [Rx Confirmed 06/28/19] Colesevelam HCl [Welchol] 1,250 mg PO BID 06/22/19 [History Confirmed 06/28/19] Donepezil HCL (NF) [Aricept (NF)] 10 mg PO DAILY 06/22/19 [History Confirmed 02/06] Furosemide TAB* [Lasix TAB*] 60 mg PO MOWEFR 06/22/19 [History Confirmed ] Amoxicillin/Clavulanate TAB* [Augmentin TAB 875*] 875 mg PO BID 5 Days #10 tab 06/28/19 [Rx] Azithromycin TAB* [Zithromax TAB (Z-JESSIE) 250 mg #6 tabs] 250 mg PO DAILY 4 Days #4 tab 06/28/19 [Rx] Azithromycin TAB* [Zithromax TAB (Z-JESSIE) 250 mg #6 tabs] 250 mg PO DAILY 4 Days #4 tab 06/28/19 [Rx] Simvastatin (NF) [Zocor (NF)] 40 mg PO BEDTIME 06/28/19 [History Confirmed 06/27] Valsartan TAB* [Diovan TAB*] 80 mg PO DAILY 06/28/19 [History Confirmed 06/28/19 ] guaiFENesin 100 mg/5 ml LIQ [Robitussin 100 mg/5ml LIQ] 10 ml PO Q4H PRN [History Confirmed 06/28/19] PMH/Surg Hx/FS Hx/Imm Hx Endocrine/Hematology History: Denies: Hx Diabetes Cardiovascular History: Reports: Hx Angina, Hx Congestive Heart Failure, Hx Coronary Artery Disease, Hx Hypercholesterolemia, Hx Hypertension, Other Cardiovascular Problems/Disorders - Echoardiagram 2014-ejection fx of 35-40% Denies: Hx Myocardial Infarction, Hx Valvular Heart Disease Respiratory History: Denies: Hx Asthma, Hx Chronic Obstructive Pulmonary Disease (COPD) History: Denies: Hx Renal Disease Musculoskeletal History: Reports: Other Musculoskeletal History - Osteoarthritis , bilateral lower extremity pitting edema Sensory History: Reports: Hx Contacts or Glasses Denies: Hx Hearing Aid Opthamlomology History: Reports: Hx Contacts or Glasses Neurological History: Reports: Hx Dementia, Other Neuro Impairments/Disorders - PT HAS TREMORS, VISIBLE - Surgical History Surgery Procedure, Year, and Place: EYE SURGERY (CATARACTS?). CARDIAC STENT Hx Anesthesia Reactions: No Infectious Disease History: Reports: Hx of Known/Suspected MRSA - current contact for MRSA - Family History Known Family History: Positive: Cardiac Disease - Social History Alcohol Use: None Hx Substance Use: No Substance Use Type: Reports: None Hx Tobacco Use: Yes Smoking Status (MU): Former Smoker Review of Systems Positive: Shortness Of Breath Positive: Nausea Positive: Other - Pale All Other Systems Reviewed And Are Negative: Yes Physical Exam - Summary Physical Exam Summary: Constitutional: Chronically ill appearing, (-) Distressed Skin: Warm, Dry HENT: Normocephalic; Atraumatic Eyes: Conjunctiva normal Neck: Musculoskeletal ROM normal neck. (-) JVD, (-) Stridor, (-) Nuchal rigidity Cardio: Rhythm regular, rate normal, Heart sounds normal; Intact distal pulses; Radial pulses are 2+ and symmetric. (-) Murmur Pulmonary/Chest wall: Effort normal. (-) Respiratory distress, faint bilateral rhonchi. Abd: Soft, (-) tenderness, (-) Distension, (-) Guarding, (-) Rebound Musculoskeletal: 2+ Edema LE Lymph: (-) Cervical adenopathy Neuro: Alert, Oriented x3, baseline tremors. Psych: Mood and affect Normal Triage Information Reviewed: Yes Vital Signs Reviewed: Yes Procedures - Sedation Patient Received Moderate/Deep Sedation with Procedure: No Diagnostics - Laboratory Result Diagrams: 06/29/19 05:03 06/29/19 05:03 Lab Statement: Any lab studies that have been ordered have been reviewed, and results considered in the medical decision making process. - Radiology Chest x-ray Radiology Interpretation Completed By: ED Physician Summary of Radiographic Findings: Right lower lobe opacity. ED physician has reviewed and interpreted this report. - EKG 18:03 Cardiac Rate: Other Rate - 76 BPM EKG Rhythm: Atrial Fibrillation Summary of EKG Findings: An EKG at 18:03 reveals atrial fibrillation rate of 76 BPM; T-Wave inversion in AVL. ED physician has reviewed and interpreted this EKG. Re-Evaluation - Re-Evaluation First Eval Re-Evaluation Time: 19:10 Comment: d/w patient elevated troponin. Patient and daughter now agreeable to admit. Course/Dx - Course Course Of Treatment: 88 y/o F w CHF p/w SOB. - recent visit for CHF. Saw PCP today and felt better. Now w cough. - labs w leukocytosis, possible PNA RLL will treat given symptoms. - patient is adamant that she does not want to be admitted to the hospital. Discuss with daughter who is in agreement with patient's wishes. Patient will be discharged on Augmentin and azithromycin. - on re evaluation, patient is agreeable to overnight admission for repeat trop and abx. - Diagnoses Differential Diagnosis/HQI/PQRI: Positive: CHF Provider Diagnoses: Pneumonia, CHF (congestive heart failure) - Physician Notifications Discussed Care of Patient With: Alcides Sheridan - accepts patient for admission Time Discussed With Above Provider: 19:30 Instructed by Provider To: Admit As Inpatient Discharge ED - Sign-Out/Discharge Documenting (check all that apply): Patient Departure - Discharge Plan Condition: Stable Disposition: ADMITTED TO [facility] - Billing Disposition and Condition Condition: STABLE Disposition: Admitted to [facility] - Attestation Statements Document Initiated by Scribe: Yes Documenting Scribe: Yissel Ibarra Provider For Whom Scribe is Documenting (Include Credential): Nash Tellez MD Scribe Attestation: Yissel Castillo, scribed for Nash Tellez MD on 06/29/19 at 1014. Scribe Documentation Reviewed: Yes Provider Attestation: The documentation as recorded by the Yissel baltazar accurately reflects the service I personally performed and the decisions made by Nash ray MD Status of Scribe Document: Viewed
[2019-06-28 18:17] LABS: ABS Basophils 0.1 10^3/ul (0-0.2); ABS Eosinophils 0.1 10^3/ul (0-0.6); ABS Lymphocytes 0.7 10^3/ul (1.0-4.8); ABS Monocytes 0.8 10^3/ul (0-0.8); ABS Neutrophils 12.9 10^3/ul (1.5-7.7); Eosinophil % 0.7 %; Hematocrit 43 % (35-47); Hemoglobin 14.4 g/dL (12.0-16.0); Lymphocyte % 5.1 %; Mean Corpuscular HGB Conc 33 g/dL (31-36); Mean Corpuscular Hemoglobin 32 pg (27-31); Mean Corpuscular Volume 97 fL (80-97); Mean Platelet Volume 9.4 fL (7.4-10.4); Platelet Count 188 10^3/uL (150-450); Red Blood Count 4.47 10^6 /uL (3.70-4.87); Red Cell Distribution Width 14 % (10-15); White Blood Count 14.6 10^3/uL (3.5-10.8)
[2019-06-28 18:21] LABS: ALT 21 U/L (7-52); AST 27 U/L (13-39); Albumin 3.7 g/dL (3.2-5.2); Albumin/Globulin Ratio 0.9 (1-3); Alkaline Phosphatase 72 U/L (34-104); BUN/Creatinine Ratio 20.2 (8-20); Blood Urea Nitrogen 21 mg/dL (6-24); CO2 Carbon Dioxide 22 mmol/L (22-32); Calcium 9.2 mg/dL (8.6-10.3); Chloride 103 mmol/L (101-111); EGFR African American 60.7 (>60); EGFR Non-African American 50.1 (>60); Globulin 4.1 g/dL (2-4); Glucose 192 mg/dL (70-100); Sodium 132 mmol/L (135-145); Total Protein 7.8 g/dL (6.4-8.9)
[2019-06-28 18:28] LABS: Anion Gap 7 mmol/L (2-11); Potassium 5.1 mmol/L (3.5-5.0)
[2019-06-28] MEDS ORDERED: Azithromycin TAB* 250 MG PO ONE (18:33)
[2019-06-28] MEDS ORDERED: Amoxicillin/Clavulanate TAB* 875 MG PO ONE (18:33)
[2019-06-28 19:11] LABS: Troponin I 0.04 ng/mL (<0.03)
[2019-06-28] MEDS ORDERED: Acetaminophen TAB* 325 MG PO PRN (20:46)
[2019-06-28] MEDS ORDERED: cefTRIAXone(*) 1 GM in NS 0.9% 50 ML* 50 ML IVPB ONE (21:17)
[2019-06-28] MEDS ORDERED: Furosemide IV* 10 MG/ML VIAL (40 MG) IV ONE (21:22)
[2019-06-28] MEDS: cefTRIAXone(*) 1 GM in NS 0.9% 50 ML* 50 ML IVPB SCH (22:19)
[2019-06-28] MEDS: Heparin VIAL(*) 5000 UNITS/ML VIAL (FIVE THOUSAND) SUBCUT SCH (23:05)
[2019-06-28] MEDS: COLESEVELAM 625 MG PO SCH (23:05)
[2019-06-28] MEDS: Atorvastatin* 20 MG TAB PO SCH (23:06)
[2019-06-29] MEDS: Levothyroxine TAB* 75 MCG TAB PO SCH (05:20)
[2019-06-29] MEDS: Heparin VIAL(*) 5000 UNITS/ML VIAL (FIVE THOUSAND) SUBCUT SCH ×3 (05:20→21:50)
[2019-06-29 05:21] LABS: ABS Basophils 0.1 10^3/ul (0-0.2); ABS Lymphocytes 1.5 10^3/ul (1.0-4.8); ABS Monocytes 1.4 10^3/ul (0-0.8); ABS Neutrophils 15.4 10^3/ul (1.5-7.7); Eosinophil % 0.1 %; Hematocrit 37 % (35-47); Hemoglobin 12.5 g/dL (12.0-16.0); Lymphocyte % 7.9 %; Mean Corpuscular HGB Conc 34 g/dL (31-36); Mean Corpuscular Hemoglobin 32 pg (27-31); Mean Corpuscular Volume 96 fL (80-97); Mean Platelet Volume 9.2 fL (7.4-10.4); Platelet Count 164 10^3/uL (150-450); Red Blood Count 3.88 10^6 /uL (3.70-4.87); Red Cell Distribution Width 14 % (10-15); White Blood Count 18.4 10^3/uL (3.5-10.8)
[2019-06-29 05:38] LABS: Anion Gap 6 mmol/L (2-11); BUN/Creatinine Ratio 19.8 (8-20); Blood Urea Nitrogen 20 mg/dL (6-24); CO2 Carbon Dioxide 27 mmol/L (22-32); Chloride 103 mmol/L (101-111); EGFR African American 62.7 (>60); EGFR Non-African American 51.8 (>60); Glucose 107 mg/dL (70-100); Magnesium 1.6 mg/dL (1.9-2.7); Potassium 4.2 mmol/L (3.5-5.0); Sodium 136 mmol/L (135-145)
[2019-06-29] MEDS: COLESEVELAM 625 MG PO SCH ×2 (08:36→21:51)
[2019-06-29] MEDS: NFT: Mirabegron (NF) 50 MG TAB PO SCH (08:39)
[2019-06-29] MEDS ORDERED: Metoprolol Succinate XL TAB* 100 MG PO SCH ×2 (09:00)
[2019-06-29] MEDS ORDERED: Furosemide IV* 10 MG/ML VIAL (40 MG) IV SCH (09:00)
[2019-06-29] MEDS: Valsartan TAB* 80 MG PO SCH (09:02)
[2019-06-29] MEDS: Aspirin EC TAB* 81 MG TAB.EC PO SCH (09:02)
[2019-06-29] MEDS: Donepezil TAB* 5 MG PO SCH (09:02)
--- NOTE | 2019-06-29 13:30 | HP ---
HISTORY AND PHYSICAL: DATE OF ADMISSION: 06/28/19 HISTORY OF PRESENT ILLNESS: The patient is an 88-year-old female with past medical history significant for hypothyroidism, systolic congestive heart failure, hypertension, hyperlipidemia, coronary artery disease, obesity who presents to the emergency room with complaints of shortness of breath, pale skin, nausea. She is pallor today. Reported no pain. Per daughter, the patient was admitted for congestive heart failure and discharged about 2 weeks ago and her shortness of breath now is worsening and the patient is shaking, which is at her baseline. She was seen earlier today by her PCP and deteriorated after her appointment. She has a history of CHF. She is DNR/DNI. When I saw the patient, she states she wants to go home that everything is fine with her. Even though she stated that she was fine, but somehow she deteriorated this afternoon, but now she is fine that she wants to go home. Chest x-ray revealed right lower lobe opacity. EKG, rhythm atrial fibrillation. The patient denied fever. Positive cough. Positive weakness. No chest pain. PAST MEDICAL HISTORY: History of angina, congestive heart failure, coronary artery disease, hypertension, hypercholesterolemia. Echocardiogram in 2014, ejection fraction was 35% to 40%. History of dementia and essential tremor, visible at baseline. PAST SURGICAL HISTORY: Positive for cataract extraction and cardiac stent. HOME MEDICATIONS: 1. Levothyroxine 37.5 mcg daily. 2. Baby aspirin 1 tablet daily. 3. Acetaminophen 650 mg p.o. q.6 p.r.n. 4. Myrbetriq 50 mg p.o. daily. 5. Lasix 40 mg p.o. daily. 6. Metoprolol succinate 100 mg p.o. daily. 7. Potassium chloride 20 mEq daily. 8. Welchol 1250 mg p.o. b.i.d. 9. Aricept 10 mg p.o. daily. 10. Lasix 60 mg p.o. every Thursday, Thursday, Thursday. 11. Simvastatin 40 mg p.o. at bedtime. 12. Valsartan 80 mg p.o. daily. 13. Robitussin 10 mL p.o. q.4 hours as needed for cough. ALLERGIES: No known drug allergies. SOCIAL HISTORY: Former smoker. Reports no alcohol use. Denied illicit drug use. REVIEW OF SYSTEMS: Positive for shortness of breath, nausea. Negative for vomiting. Negative for chest pain. Positive for cough. PHYSICAL EXAMINATION CONSTITUTIONAL: Well developed, well nourished, alert, not in any distress. VITAL SIGNS: Temperature 97.2, heart rate 54, respiratory rate 20, pulse oximetry 96%, blood pressure 114/45. HEENT: Normocephalic, atraumatic. Eyes: Conjunctivae normal, anicteric. NECK: Supple. No JVD. No nuchal rigidity. No stridor. No lymphadenopathy. PULMONARY: Effort normal. Not in respiratory distress. Faint bilateral rhonchi. CARDIAC: S1 and S2 heard. Normal heart sounds. Regular rate and rhythm. No murmurs. ABDOMEN: Soft, positive bowel sounds in all 4 quadrants. Nontender, nondistended. No guarding. No rebound. MUSCULOSKELETAL: Acyanotic. No edema. NEUROLOGIC: Alert and oriented x3. No focal deficits. PSYCHIATRIC: Normal mood and affect. ASSESSMENT AND PLAN: An 88-year-old female presents with shortness of breath, nausea, with chest x-ray findings for right lower lobar pneumonia and history of chronic congestive heart failure. The patient was admitted to the medical floor. For the right lobar pneumonia, I will start IV Rocephin 1 g daily, IV azithromycin 500 mg daily to cover for atypicals. Followup blood culture. Followup a.m. labs. For congestive heart failure, I will start IV Lasix 40 mg daily, daily weighing , monitor input and output, monitor electrolytes and replete as needed. For dementia, the patient will continue on home medication Aricept 10 mg p.o. daily. For hyperlipidemia, the patient to continue with simvastatin 40 mg p.o. at bedtime. For high blood pressure, the patient to continue on home med valsartan 80 mg p.o. daily with holding parameters. Metoprolol succinate 100 mg p.o. daily with holding parameters. For hypothyroidism, the patient to continue with levothyroxine 37.5 mcg daily. Nutrition: Cardiac diet. DVT prophylaxis with heparin subcu. Code status: DNI/DNR. TIME SPENT: Time spent on this admission was 60 minutes. Greater than half of that time was spent [id number] with the patient obtaining my history and physical, the other half of the time was spent going over the plan of care with the patient and implementing plan of care. Thank you very much for the opportunity to partake in the healthcare needs of this cedrick lady. [id number]/[facility] #: [id number] PRECIOUS
[2019-06-29] MEDS ORDERED: Magnesium Sulfate 2 GM IV* 2 GM/50 ML BAG IVPB ONE (13:33)
[2019-06-29 14:15] LABS: Troponin I 0.05 ng/mL (<0.03)
--- NOTE | 2019-06-29 16:57 | PN ---
Subjective Date of Service: 06/29/19 Interval History: Awake, alert no acute distress. Very pleasant, sitting in bed with daughter at bedside. She feels better tolerating po well. She did have significant bradycardia earlier as low as 35 bpm and one brief episode of ventricular tachycardia. Mag was 1.8 replaced. her Toprol was 100 mg XL (held), and initiated metoprolol-tartrate at 25 mg bid with holding parameter. This bring the question whether or not her "GI symptoms" yesterday at home if it was GI indeed or Cardiac due to vagal tone Bradycardia? Past Medical History: Unchanged from Admission Objective Active Medications: Acetaminophen (Tylenol Tab*) 650 mg PO Q6HR PRN PRN Reason: PAIN - MODERATE Aspirin (Aspirin Ec Tab*) 81 mg PO DAILY [facility] Last Admin: 06/29/19 09:02 Dose: 81 mg Atorvastatin Calcium (Lipitor*) 20 mg PO BEDTIME [facility] Last Admin: 06/28/19 23:06 Dose: 20 mg Colesevelam HCl (Welchol(Nf)) 1,250 mg PO BID [facility] Last Admin: 06/29/19 08:36 Dose: Not Given Donepezil HCl (Aricept Tab*) 10 mg PO DAILY [facility] Last Admin: 06/29/19 09:02 Dose: 10 mg Doxycycline Hyclate (Vibramycin Cap(*)) 100 mg PO BID [facility] Furosemide (Lasix Iv*) 40 mg IV DAILY [facility] Last Admin: 06/29/19 09:02 Dose: 40 mg Guaifenesin (Robitussin 100 Mg/5ml Liq) 10 ml PO Q4H PRN PRN Reason: COUGH Heparin Sodium (Porcine) (Heparin Vial(*)) 5,000 units SUBCUT Q8HR [facility] Last Admin: 06/29/19 14:17 Dose: 5,000 units Ceftriaxone Sodium 1 gm/ (Sodium Chloride) 50 mls @ 100 mls/hr IVPB Q24H [facility] Last Admin: 06/28/19 22:19 Dose: 100 mls/hr Levothyroxine Sodium (Synthroid Tab*) 37.5 mcg PO DAILY@0600 [facility] Last Admin: 06/29/19 05:20 Dose: 37.5 mcg Metoprolol Tartrate (Lopressor Tab*) 25 mg PO BID [facility] Mirabegron (Myrbetriq (Nf)) 50 mg PO DAILY [facility] Last Admin: 06/29/19 08:39 Dose: Not Given Valsartan (Diovan Tab*) 80 mg PO DAILY [facility] Last Admin: 06/29/19 09:02 Dose: 80 mg Vital Signs - 8 hr 06/29/19 06/29/19 10:53 15:19 Temperature 98.1 F 97.5 F Pulse Rate 50 50 Respiratory 20 18 Rate Blood Pressure 110/47 115/45 (mmHg) O2 Sat by Pulse 94 93 Oximetry Oxygen Devices in Use Now: Nasal Cannula Appearance: awake, alert pleasant. Eyes: No Scleral Icterus, - - EOMI Ears/Nose/Mouth/Throat: NL Teeth, Lips, Gums, Mucous Membranes Moist Neck: NL Appearance and Movements; NL JVP, Trachea Midline Respiratory: - - poor airflow, diminished at bases and expiratory wheezing Cardiovascular: - - + edema bialteral, bradycardia, irregularly irregular Abdominal: NL Sounds; No Tenderness; No Distention Extremities: - - + michele Neurological: Alert and Oriented x 3 Result Diagrams: 06/29/19 05:03 06/29/19 05:03 Microbiology and Other Data: Microbiology 06/28/19 21:45 Nasal Screen MRSA (PCR) - Final Nasal Mrsa Not Detected Assess/Plan/Problems-Billing Assessment: 88 y/o female admitted 06/28/19 for GI symptoms manifested as nausea followed by SOB. Admitted for SOB secondary to RLL and CHF - Patient Problems (1) Acute exacerbation of CHF (congestive heart failure) Current Visit: No Status: Acute Code(s): I50.9 - HEART FAILURE, UNSPECIFIED SNOMED Code(s): 240714131 Comment: - Will continue lasix will change to 40 mg IV bid (from daily) - Reorder Echo to assess LV function. EF known 30-35% on Echo (Dec 2017) - Given her NSVT and low EF, I spoke to daughter at bedside she does not want any aggresive measure. Not sure when she saw cardiology last (she thinks it was Dr. Pierce). - I replaced mag+, check TSH, and give her significant bradycardia I changed her toprol-XL to lopressor 25 mg bid and consider cardiology consult in am for medical optimization. She may good candidate for coreg instead? - continue diovan 80 mg daily. gentle titration upward. She does need cardiology at least outpatient as well (2) CAP (community acquired pneumonia) Current Visit: No Status: Acute Code(s): J18.9 - PNEUMONIA, UNSPECIFIED ORGANISM SNOMED Code(s): 475469534 Comment: - CAP. continue ceftriaxone day # 2 and changed her azithromycin to doxycycline given her cardiac history (3) Hypomagnesemia Current Visit: No Status: Acute Priority: High Onset Date: 04/16/14 Code (s): E83.42 - HYPOMAGNESEMIA SNOMED Code(s): 393785666 Comment: - Mag 1.6. given 2 mg recheck am - start magoxide 400 mg daily (4) Lymphedema of both lower extremities Current Visit: No Status: Acute Code(s): I89.0 - LYMPHEDEMA, NOT ELSEWHERE CLASSIFIED SNOMED Code(s): 50442567684153635 Comment: - KESHA wrap, lasix increased to 40 mg IV bid, supportive care. (5) Hypertension Current Visit: No Status: Chronic Priority: Low Code(s): I10 - ESSENTIAL ( PRIMARY) HYPERTENSION SNOMED Code(s): 72228538 Comment: - changed toprol XL 100 mg daily to metoprolol 25 mg bid due to bradycardia - continue diovan 80 mg daily - Lasix (6) Hypothyroidism Current Visit: No Status: Chronic Priority: Low Code(s): E03.9 - HYPOTHYROIDISM, UNSPECIFIED SNOMED Code(s): 77743200 Comment: - on levothyroxine 37.5 mcg daily, check TSH in am (7) Hyperlipidemia Current Visit: No Status: Chronic Priority: Low Code(s): E78.5 - HYPERLIPIDEMIA, UNSPECIFIED SNOMED Code(s): 38987299 Comment: - Continue Wellchol and lipitor (8) DVT prophylaxis Current Visit: No Status: Acute Code(s): HQE8271 - SNOMED Code(s): 722424828 Comment: - HSQ
[2019-06-29] MEDS ORDERED: Azithromycin 500 mg/250 ml NS 500 MG/250 ML BAG IVPB SCH (18:00)
[2019-06-29] MEDS: Magnesium Oxide TAB* 400 MG PO SCH (19:13)
[2019-06-29] MEDS: DOXYcycline CAP(*) 100 MG PO SCH (21:50)
[2019-06-29] MEDS: Furosemide IV* 10 MG/ML VIAL (40 MG) IV SCH (21:50)
[2019-06-29] MEDS: Atorvastatin* 20 MG TAB PO SCH (21:50)
[2019-06-29] MEDS: cefTRIAXone(*) 1 GM in NS 0.9% 50 ML* 50 ML IVPB SCH (21:51)
[2019-06-29] MEDS: Metoprolol Tartrate TAB* 25 MG PO SCH (21:51)
[2019-06-30] MEDS: Heparin VIAL(*) 5000 UNITS/ML VIAL (FIVE THOUSAND) SUBCUT SCH ×3 (05:45→20:39)
[2019-06-30] MEDS: Levothyroxine TAB* 75 MCG TAB PO SCH (05:46)
[2019-06-30 05:51] LABS: ABS Basophils 0.1 10^3/ul (0-0.2); ABS Eosinophils 0.2 10^3/ul (0-0.6); ABS Lymphocytes 1.3 10^3/ul (1.0-4.8); ABS Neutrophils 8.9 10^3/ul (1.5-7.7); Eosinophil % 1.4 %; Hematocrit 37 % (35-47); Hemoglobin 12.7 g/dL (12.0-16.0); Lymphocyte % 11.1 %; Mean Corpuscular HGB Conc 34 g/dL (31-36); Mean Corpuscular Hemoglobin 33 pg (27-31); Mean Corpuscular Volume 96 fL (80-97); Mean Platelet Volume 9.7 fL (7.4-10.4); Platelet Count 165 10^3/uL (150-450); Red Blood Count 3.88 10^6 /uL (3.70-4.87); Red Cell Distribution Width 14 % (10-15); White Blood Count 11.4 10^3/uL (3.5-10.8)
[2019-06-30 06:13] LABS: BUN/Creatinine Ratio 21.8 (8-20); Calcium 8.9 mg/dL (8.6-10.3); EGFR African American 62.7 (>60); EGFR Non-African American 51.8 (>60); Magnesium 1.8 mg/dL (1.9-2.7); Phosphorus 3.2 mg/dL (2.5-5.0); Potassium 3.7 mmol/L (3.5-5.0)
[2019-06-30 06:36] LABS: TSH (Thyroid Stimulating Horm) 3.11 mcIU/mL (0.34-5.60)
[2019-06-30] MEDS: COLESEVELAM 625 MG PO SCH ×2 (09:03→20:51)
[2019-06-30] MEDS: NFT: Mirabegron (NF) 50 MG TAB PO SCH (09:04)
[2019-06-30] MEDS: DOXYcycline CAP(*) 100 MG PO SCH ×2 (09:06→20:38)
[2019-06-30] MEDS: Furosemide IV* 10 MG/ML VIAL (40 MG) IV SCH (09:06)
[2019-06-30] MEDS: Metoprolol Tartrate TAB* 25 MG PO SCH ×2 (09:06→20:36)
[2019-06-30] MEDS: Valsartan TAB* 80 MG PO SCH (09:06)
[2019-06-30] MEDS: Magnesium Oxide TAB* 400 MG PO SCH (09:06)
[2019-06-30] MEDS: Aspirin EC TAB* 81 MG TAB.EC PO SCH (09:06)
[2019-06-30] MEDS: Donepezil TAB* 5 MG PO SCH ×2 (09:08→20:39)
--- NOTE | 2019-06-30 11:53 | ECHO ---
*[facility]* [place] [address] Fax #: [phone] Transthoracic Echocardiogram Patient: Andree Villeda : 1930 Study Date: 06/30/2019 Age: 88 Gender: F HR: 69 bpm Height: 67 in /170.2 cm BSA: 2.02 m^2 Weight: 199.6 lb /90.7 kg BMI: 31.3 kg/m^2 *Office Technologist: [place] [facility] *Referring Physician: * Jax PaezReading Physician: * Toña Suero MD Indications: Congestive Heart Failure. History: Coronary artery disease. Congestive heart failure. PMH: Myocardial infarction. Risk factors: Hypertension. Dyslipidemia. Labs, prior tests, procedures, and surgery: Catheterization (1996). There was a stenosis which was treated with a stent. Conclusions Summary: - Left ventricle: Systolic function is moderately reduced. The estimated ejection fraction is 30-35%. Hypokinesis of the apicalinferoseptal and apical myocardium. Hypokinesis of the apicallateral myocardium. Hypokinesis of the apicalinferior myocardium. - Right atrium: The atrium is mildly dilated. - Mitral valve: There is trace to mild regurgitation. - Tricuspid valve: There is trace to mild regurgitation. - Pericardium, extracardiac: There is a left pleural effusion. - C/t 01/18/2018, mitral regurgitation and tricuspid regurgitation are less now. Study data: Transthoracic echocardiogram. Procedure: Transthoracic echocardiography was performed. Image quality was adequate. Complete 2D, spectral Doppler, and color flow Doppler. Location: Bedside. Patient status: Inpatient. Patient room number: 433. Rhythm: Normal sinus rhythm. Findings Left ventricle: The cavity size is mildly dilated. Wall thickness is mildly increased. Systolic function is moderately reduced. The estimated ejection fraction is 30-35%. Regional wall motion abnormalities: Hypokinesis of the apicalinferoseptal and apical myocardium. Hypokinesis of the apicallateral myocardium. Hypokinesis of the apicalinferior myocardium. Hypokinesis of the apicalanterior myocardium. Doppler parameters are abnormal. Right ventricle: The cavity size is normal. Wall thickness is increased. Systolic function is normal. Left atrium: The atrium is moderately dilated. Right atrium: The atrium is mildly dilated. Mitral valve: The Mitral valve annulus appears . The leaflets are mildly thickened. Mild thickening, with involvement of chords. There is no evidence of stenosis. There is trace to mild regurgitation. Aortic valve: The annulus is mildly calcified. The valve is trileaflet. The leaflets are mildly thickened. There is no evidence of stenosis. There is no significant regurgitation. Tricuspid valve: The leaflets are normal thickness. There is no evidence of stenosis. There is trace to mild regurgitation. Pulmonic valve: The leaflets are normal thickness. There is no evidence of stenosis. There is trace regurgitation. Aorta: The aortic root appears normal. The aortic arch appears normal. Pericardium: There is no significant pericardial effusion. There is a left pleural effusion. Pulmonary arteries: Systolic pressure can not be accurately estimated. Systemic veins: Inferior vena cava: The vessel is dilated. There is (< 50%) respiratory change in the IVC dimension. Measurements Left ventricle Value Ref Aortic valve continued Value Ref AMBER, LAX (H) 5.5 cm 3.8 - 5.2 Peak v, S 1.35 m/sec --------- ESD, LAX (H) 4.5 cm 2.2 - 3.5 VTI, S 31.2 cm --------- FS, LAX (L) 18 % 27 - 45 Mean grad, S 4.0 mm Hg --------- PW, ED, LAX (H) 1.0 cm 0.6 - 0.9 Peak grad, S 7.0 mm Hg --------- E', lat malachi, TDI (L) 8.1 cm/sec >=10.0 E/e', lat malachi, 16 Mitral valve Value Ref TDI Peak E 1.29 m/sec --------- E', med malachi, TDI (L) 4.4 cm/sec >=7.0 Peak A 0.63 m/sec - -------- E/e', med malachi, 29 Decel time 156 ms ---- ----- TDI PHT 75 ms --------- E', avg, TDI 6.3 cm/sec Mean grad, D 2.0 mm Hg ---- ----- E/e', avg, TDI (H) 21 <=14 Peak grad, D 9.0 mm Hg - -------- Peak E/A ratio 2 --------- LVOT Value Ref MVA, PHT 2.9 cm^2 --------- Diam 17.0 cm Peak katia, S 0.8 m/sec Pulmonic valve Value Ref Peak grad, S 3 mm Hg Peak v, S 0.74 m/sec --------- Mean grad, S 1 mm Hg Peak grad, S 2.0 mm Hg --------- Ventricular septum Value Ref Aortic root Value Ref IVS, ED (H) 1.0 cm 0.6 - 0.9 Root diam 2.9 cm <4.2 Root max 1.4 cm/m^2 1.4 - 2.2 Right ventricle Value Ref diam/bsa, ED AMBER, LAX 2.6 cm Ascending aorta Value Ref Left atrium Value Ref AAo AP diam, S 2.8 cm --------- AP dim, ES 3.80 cm 2.70 - AAo AP 1.4 cm/m^2 --------- 3.80 diam/bsa, S ML dim, A4C 4.9 cm SI dim, A4C 6.7 cm Aortic arch Value Ref Vol/bsa, ES, A/L (H) 42 ml/m^2 16 - 34 Arch diam 2.3 cm --------- Arch diam/bsa 1.1 cm/m^2 --------- Right atrium Value Ref SI dim, ES (H) 5.7 cm 3.4 - 5.3 Inferior vena cava Value Ref ML dim, ES, A4C 4.0 cm 2.6 - 4.4 Diam 2.7 cm --------- Estimated RAP 8 mm Hg Pulmonary veins Value Ref Aortic valve Value Ref Peak v, S 0.54 m/sec --------- Malachi diam, ED 2.0 cm Legend: (L) and (H) redd values outside specified reference range. Prepared and electronically signed by Toña Suero MD 06/30/2019 11:52
--- NOTE | 2019-06-30 16:16 | PN ---
Subjective Date of Service: 06/30/19 Interval History: Pt is feeling well. All she tells me is she wants to go home. She denies SOB. Objective Active Medications: Acetaminophen (Tylenol Tab*) 650 mg PO Q6HR PRN PRN Reason: PAIN - MODERATE Aspirin (Aspirin Ec Tab*) 81 mg PO DAILY [facility] Last Admin: 06/30/19 09:06 Dose: 81 mg Atorvastatin Calcium (Lipitor*) 20 mg PO BEDTIME [facility] Last Admin: 06/29/19 21:50 Dose: 20 mg Colesevelam HCl (Welchol(Nf)) 1,250 mg PO BID [facility] Last Admin: 06/30/19 09:03 Dose: Not Given Donepezil HCl (Aricept Tab*) 10 mg PO 2100 [facility] Doxycycline Hyclate (Vibramycin Cap(*)) 100 mg PO BID [facility] Last Admin: 06/30/19 09:06 Dose: 100 mg Furosemide (Lasix Iv*) 40 mg IV BID [facility] Last Admin: 06/30/19 09:06 Dose: 40 mg Guaifenesin (Robitussin 100 Mg/5ml Liq) 10 ml PO Q4H PRN PRN Reason: COUGH Heparin Sodium (Porcine) (Heparin Vial(*)) 5,000 units SUBCUT Q8HR [facility] Last Admin: 06/30/19 13:38 Dose: 5,000 units Ceftriaxone Sodium 1 gm/ (Sodium Chloride) 50 mls @ 100 mls/hr IVPB Q24H [facility] Last Admin: 06/29/19 21:51 Dose: 100 mls/hr Levothyroxine Sodium (Synthroid Tab*) 37.5 mcg PO DAILY@0600 [facility] Last Admin: 06/30/19 05:46 Dose: 37.5 mcg Magnesium Oxide (Magox 400 Tab*) 400 mg PO DAILY [facility] Last Admin: 06/30/19 09:06 Dose: 400 mg Metoprolol Tartrate (Lopressor Tab*) 25 mg PO BID [facility] Last Admin: 06/30/19 09:06 Dose: 25 mg Mirabegron (Myrbetriq (Nf)) 50 mg PO DAILY [facility] Last Admin: 06/30/19 09:04 Dose: Not Given Valsartan (Diovan Tab*) 80 mg PO DAILY [facility] Last Admin: 06/30/19 09:06 Dose: 80 mg Vital Signs - 8 hr 06/30/19 12:23 Temperature 98.1 F Pulse Rate 60 Respiratory 16 Rate Blood Pressure 127/46 (mmHg) O2 Sat by Pulse 96 Oximetry Oxygen Devices in Use Now: None Appearance: Elderly female sitting up in bed, NAD Eyes: No Scleral Icterus Ears/Nose/Mouth/Throat: Mucous Membranes Moist Respiratory: Symmetrical Chest Expansion and Respiratory Effort, Clear to Auscultation Cardiovascular: NL Sounds; No Murmurs; No JVD, RRR, No Edema Abdominal: NL Sounds; No Tenderness; No Distention Extremities: No Clubbing, Cyanosis Skin: No Nodules or Sclerosis Neurological: - - mildly confused Result Diagrams: 06/30/19 05:26 06/30/19 05:26 Microbiology and Other Data: Microbiology 06/28/19 21:45 Nasal Screen MRSA (PCR) - Final Nasal Mrsa Not Detected Assess/Plan/Problems-Billing 88 y/o female who presented on 06/28/19 for c/o SOB and nausea and was admitted for possible RLL pneumonia and CHF. - Patient Problems (1) Acute exacerbation of CHF (congestive heart failure) Current Visit: Yes Status: Acute Code(s): I50.9 - HEART FAILURE, UNSPECIFIED SNOMED Code(s): 932865805 Comment: Pt is feeling much better. She likely had a mild acute systolic CHF exacerbation. Her lungs are clear and she has no LE edema. Echo done yesterday reveals an EF of 30-35% unchanged from 2018. Continue oral diuretics, metoprolol , diovan and ensure electrolytes are replaced. (2) CAP (community acquired pneumonia) Current Visit: Yes Status: Acute Code(s): J18.9 - PNEUMONIA, UNSPECIFIED ORGANISM SNOMED Code(s): 511002044 Comment: Pt with possible RLL pneumonia. WBC count was up and now trending down. Continue ceftriaxone and doxycycline. Today is D#3. (3) Coronary artery disease Current Visit: Yes Status: Acute Code(s): I25.10 - ATHSCL HEART DISEASE OF [place] CORONARY ARTERY W/O ANG PCTRS SNOMED Code(s): 44222627 Comment: No c/o chest pain. Troponin mildly elevatd but likely secondary to demand ischemia. (4) Hypertension Current Visit: Yes Status: Chronic Priority: Low Code(s): I10 - ESSENTIAL (PRIMARY) HYPERTENSION SNOMED Code(s): 19922556 Comment: BP is under good control even with decreasing Bblocker dose. Continue metoprolol 25mg BID and diovan 80mg daily. (5) Hyperlipidemia Current Visit: Yes Status: Chronic Code(s): E78.5 - HYPERLIPIDEMIA, UNSPECIFIED SNOMED Code(s): 11822860 Comment: Continue lipitor. (6) Hypothyroidism Current Visit: Yes Status: Chronic Priority: Low Code(s): E03.9 - HYPOTHYROIDISM, UNSPECIFIED SNOMED Code(s): 48755885 Comment: TSH in good range. Continue current dose of synthroid. (7) Mild cognitive impairment Current Visit: Yes Status: Acute Code(s): G31.84 - MILD COGNITIVE IMPAIRMENT , SO STATED SNOMED Code(s): 562102190 Comment: Continue aricept. (8) DVT prophylaxis Current Visit: Yes Status: Acute Code(s): GYI6750 - SNOMED Code(s): 117464091 Comment: SQ heparin (9) DNR (do not resuscitate) Current Visit: Yes Status: Acute Comment:
[2019-06-30] MEDS ORDERED: Magnesium Sulfate 2 GM IV* 2 GM/50 ML BAG IVPB ONE (16:18)
[2019-06-30] MEDS ORDERED: Potassium Chloride* LIQUID 20 MEQ/15 ML UDC PO ONE (16:18)
[2019-06-30] MEDS: guaiFENesin 100 mg/5 ml LIQ unit dose cup PO PRN (20:39)
[2019-06-30] MEDS: Atorvastatin* 20 MG TAB PO SCH (20:39)
[2019-06-30] MEDS: cefTRIAXone(*) 1 GM in NS 0.9% 50 ML* 50 ML IVPB SCH (21:44)
[2019-07-01] MEDS: guaiFENesin 100 mg/5 ml LIQ unit dose cup PO PRN ×3 (02:13→20:57)
[2019-07-01] MEDS: Levothyroxine TAB* 75 MCG TAB PO SCH (05:42)
[2019-07-01] MEDS: Heparin VIAL(*) 5000 UNITS/ML VIAL (FIVE THOUSAND) SUBCUT SCH (05:42)
[2019-07-01 06:43] LABS: ABS Eosinophils 0.1 10^3/ul (0-0.6); ABS Lymphocytes 1.2 10^3/ul (1.0-4.8); ABS Neutrophils 5.9 10^3/ul (1.5-7.7); Eosinophil % 1.5 %; Hematocrit 37 % (35-47); Hemoglobin 12.7 g/dL (12.0-16.0); Lymphocyte % 14.2 %; Mean Corpuscular HGB Conc 34 g/dL (31-36); Mean Corpuscular Hemoglobin 33 pg (27-31); Mean Corpuscular Volume 96 fL (80-97); Mean Platelet Volume 9.7 fL (7.4-10.4); Nucleated Red Blood Cells % 0.1; Platelet Count 181 10^3/uL (150-450); Red Blood Count 3.87 10^6 /uL (3.70-4.87); Red Cell Distribution Width 14 % (10-15); White Blood Count 8.2 10^3/uL (3.5-10.8)
[2019-07-01 06:56] LABS: BUN/Creatinine Ratio 18.9 (8-20); Calcium 8.6 mg/dL (8.6-10.3); EGFR African American 67.3 (>60); EGFR Non-African American 55.6 (>60); Potassium 3.9 mmol/L (3.5-5.0)
[2019-07-01] MEDS: COLESEVELAM 625 MG PO SCH ×2 (07:55→20:50)
[2019-07-01] MEDS: NFT: Mirabegron (NF) 50 MG TAB PO SCH (07:59)
[2019-07-01] MEDS: Magnesium Oxide TAB* 400 MG PO SCH (08:04)
[2019-07-01] MEDS: Furosemide TAB* 40 MG PO SCH (08:05)
[2019-07-01] MEDS: Aspirin EC TAB* 81 MG TAB.EC PO SCH (08:05)
[2019-07-01] MEDS: Valsartan TAB* 80 MG PO SCH (08:05)
[2019-07-01] MEDS: DOXYcycline CAP(*) 100 MG PO SCH ×2 (08:05→20:50)
[2019-07-01] MEDS: Metoprolol Tartrate TAB* 25 MG PO SCH ×2 (08:05→20:50)
[2019-07-01] MEDS ORDERED: Potassium Chlor TAB* 20 MEQ TAB.ER PO SCH (09:00)
--- NOTE | 2019-07-01 12:13 | PN ---
Subjective Date of Service: 07/01/19 Interval History: Patient seen today, very frustrated she is still coughing and very weak. Daughter at bedside states that she is significantly weak today and would like her to go to rehab. Daughter states that she had difficulty ambulating from bed to bathroom today. No events overnight. Her cough is still present. but no fever. tolerating po well Past Medical History: Unchanged from Admission Objective Active Medications: Acetaminophen (Tylenol Tab*) 650 mg PO Q6HR PRN PRN Reason: PAIN - MODERATE Aspirin (Aspirin Ec Tab*) 81 mg PO DAILY [facility] Last Admin: 07/01/19 08:05 Dose: 81 mg Atorvastatin Calcium (Lipitor*) 20 mg PO BEDTIME [facility] Last Admin: 06/30/19 20:39 Dose: 20 mg Cefdinir (Cefdinir Cap*) 300 mg PO BID [facility] Colesevelam HCl (Welchol(Nf)) 1,250 mg PO BID [facility] Last Admin: 07/01/19 07:55 Dose: Not Given Donepezil HCl (Aricept Tab*) 10 mg PO 2100 [facility] Last Admin: 06/30/19 20:39 Dose: 10 mg Doxycycline Hyclate (Vibramycin Cap(*)) 100 mg PO BID [facility] Last Admin: 07/01/19 08:05 Dose: 100 mg Furosemide (Lasix Tab*) 40 mg PO DAILY [facility] Last Admin: 07/01/19 08:05 Dose: 40 mg Guaifenesin (Robitussin 100 Mg/5ml Liq) 10 ml PO Q4H PRN PRN Reason: COUGH Last Admin: 07/01/19 11:31 Dose: 10 ml Heparin Sodium (Porcine) (Heparin Vial(*)) 5,000 units SUBCUT Q8HR [facility] Last Admin: 07/01/19 05:42 Dose: 5,000 units Levothyroxine Sodium (Synthroid Tab*) 37.5 mcg PO DAILY@0600 [facility] Last Admin: 07/01/19 05:42 Dose: 37.5 mcg Magnesium Oxide (Magox 400 Tab*) 400 mg PO DAILY [facility] Last Admin: 07/01/19 08:04 Dose: 400 mg Metoprolol Tartrate (Lopressor Tab*) 25 mg PO BID [facility] Last Admin: 07/01/19 08:05 Dose: 25 mg Mirabegron (Myrbetriq (Nf)) 50 mg PO DAILY [facility] Last Admin: 07/01/19 07:59 Dose: Not Given Potassium Chloride (Klor Con Er Tab*) 20 meq PO DAILY [facility] Last Admin: 07/01/19 10:11 Dose: 20 meq Valsartan (Diovan Tab*) 80 mg PO DAILY [facility] Last Admin: 07/01/19 08:05 Dose: 80 mg Vital Signs - 8 hr 07/01/19 07/01/19 07:36 08:00 Temperature 97.6 F Pulse Rate 63 Respiratory 16 18 Rate Blood Pressure 124/57 (mmHg) O2 Sat by Pulse 92 Oximetry Oxygen Devices in Use Now: None Appearance: awake, alert, no disstress Eyes: No Scleral Icterus, - - EOMI Ears/Nose/Mouth/Throat: Clear Oropharnyx, Mucous Membranes Moist Neck: NL Appearance and Movements; NL JVP, Trachea Midline Respiratory: - - expiratory wheezing. no rhonchi. RR normal Cardiovascular: - - Edema, varicose veins Abdominal: NL Sounds; No Tenderness; No Distention Result Diagrams: 07/01/19 05:54 07/01/19 05:54 Microbiology and Other Data: Microbiology 06/28/19 21:45 Nasal Screen MRSA (PCR) - Final Nasal Mrsa Not Detected Assess/Plan/Problems-Billing 88 y/o female who presented on 06/28/19 for c/o SOB and nausea and was admitted for possible RLL pneumonia and CHF. - Patient Problems (1) Atrial fibrillation Current Visit: Yes Status: Acute Code(s): I48.91 - UNSPECIFIED ATRIAL FIBRILLATION SNOMED Code(s): 24794983 Comment: - Afib. Not sure of when she went into afib. - It was present on this admission and also seen 05/07/18 - She has not seen cue worker over 7 years and not on anticoagulation. - She was significantly bradycardic on torpol XL 100 mg now I changed it to 25 mg bid - On ASA 81 mg daily. [id number] score 5. I spoke to daughter and patient explained the risk and benefit and agreed for Anticoagulation. Will start Eliquis 2.5 mg bid (adjusted for age and GFR) (2) Coronary artery disease Current Visit: Yes Status: Acute Code(s): I25.10 - ATHSCL HEART DISEASE OF [place] CORONARY ARTERY W/O ANG PCTRS SNOMED Code(s): 28519443 Comment: - hx No c/o chest pain. Pleuritic with coughing - Troponin mildly elevatd but likely secondary to demand ischemia. - She does not want any aggressive therapy. - Cotinue aspirin 81 mg daiy, Lipitor 20 mg HS, and lopressor 25 mg bid (3) Acute exacerbation of CHF (congestive heart failure) Current Visit: Yes Status: Acute Code(s): I50.9 - HEART FAILURE, UNSPECIFIED SNOMED Code(s): 016556483 Comment: - Echo done 06/29/19 EF consistent 30-35% (same as in 2018) - I discussed with her and daughter at bedside risk of cardiac arrest and that she may benefit from cardiac evaluation for PPM/AICD given her low EF. She is not interested in pacemaker. - I will continue medical therapy, I will opitmize treatment and will need to re -establish with her cue worker as outpatient (Dr. Pierce have not seen him for > 7 years). I will consult with cardiology in patient to comanage medical opitmizations - continue ASA 81 mg Daily; lopressor 25 mg bid; Diovan 80 mg daily. I will add aldactone 25 mg daily and wathc electrolytes (4) CAP (community acquired pneumonia) Current Visit: Yes Status: Acute Code(s): J18.9 - PNEUMONIA, UNSPECIFIED ORGANISM SNOMED Code(s): 234645799 Comment: - RLL pneumonia. WBC count was up and now trending down. - will change ceftriaxone to cefdinir and continue doxycycline. Today is D#4. (5) Hypomagnesemia Current Visit: No Status: Acute Priority: High Onset Date: 04/16/14 Code (s): E83.42 - HYPOMAGNESEMIA SNOMED Code(s): 524993572 Comment: - continue magoxide 400 mg daily (6) Lymphedema of both lower extremities Current Visit: No Status: Acute Code(s): I89.0 - LYMPHEDEMA, NOT ELSEWHERE CLASSIFIED SNOMED Code(s): 33915894869586734 Comment: - KESHA wrap, s/p lasix 40 mg IV bid, supportive care. - Now on lasix 40 mg daily. Added aldactone 25 mg daily given her low EF 30-35 % (7) Hypertension Current Visit: Yes Status: Chronic Priority: Low Code(s): I10 - ESSENTIAL (PRIMARY) HYPERTENSION SNOMED Code(s): 24874762 Comment: - BP is under good control even with decreasing Bblocker dose. - Continue metoprolol 25mg BID and diovan 80mg daily. - Added Aldactone 25 mg daily given her EF 30-35% (8) Hypothyroidism Current Visit: Yes Status: Chronic Priority: Low Code(s): E03.9 - HYPOTHYROIDISM, UNSPECIFIED SNOMED Code(s): 24648128 Comment: - TSH 3.17. - Continue current dose of synthroid. (9) Hyperlipidemia Current Visit: Yes Status: Chronic Code(s): E78.5 - HYPERLIPIDEMIA, UNSPECIFIED SNOMED Code(s): 98778966 Comment: Continue lipitor. (10) DVT prophylaxis Current Visit: Yes Status: Acute Code(s): RFN2452 - SNOMED Code(s): 526912648 Comment: SQ heparin
[2019-07-01] MEDS: Apixaban* 5 MG TAB PO SCH (20:50)
[2019-07-01] MEDS: Donepezil TAB* 5 MG PO SCH (20:50)
[2019-07-01] MEDS: Atorvastatin* 20 MG TAB PO SCH (20:50)
[2019-07-01] MEDS: Cefdinir cap* 300 MG CAP PO SCH (22:50)
[2019-07-02] MEDS: guaiFENesin 100 mg/5 ml LIQ unit dose cup PO PRN (03:58)
[2019-07-02] MEDS: Levothyroxine TAB* 75 MCG TAB PO SCH (05:51)
[2019-07-02] MEDS: NFT: Mirabegron (NF) 50 MG TAB PO SCH (08:29)
[2019-07-02] MEDS: COLESEVELAM 625 MG PO SCH ×2 (08:29→20:08)
[2019-07-02] MEDS: Magnesium Oxide TAB* 400 MG PO SCH (08:32)
[2019-07-02] MEDS: Furosemide TAB* 40 MG PO SCH (08:32)
[2019-07-02] MEDS: Apixaban* 5 MG TAB PO SCH ×2 (08:33→20:07)
[2019-07-02] MEDS: DOXYcycline CAP(*) 100 MG PO SCH ×2 (08:33→20:07)
[2019-07-02] MEDS: Aspirin EC TAB* 81 MG TAB.EC PO SCH (08:33)
[2019-07-02] MEDS: Valsartan TAB* 80 MG PO SCH (08:33)
[2019-07-02] MEDS: Metoprolol Tartrate TAB* 25 MG PO SCH ×2 (08:34→20:07)
[2019-07-02] MEDS: Spironolactone TAB* 25 MG PO SCH (08:34)
[2019-07-02] MEDS: Cefdinir cap* 300 MG CAP PO SCH ×2 (11:28→22:15)
--- NOTE | 2019-07-02 17:04 | PN ---
Subjective Date of Service: 07/02/19 Interval History: Patient seen today, still coughing no acute events. taking po well. no events overnight. awaiting placement Past Medical History: Unchanged from Admission Objective Active Medications: Acetaminophen (Tylenol Tab*) 650 mg PO Q6HR PRN PRN Reason: PAIN - MODERATE Apixaban (Eliquis*) 5 mg PO BID [facility] Last Admin: 07/02/19 08:33 Dose: 5 mg Aspirin (Aspirin Ec Tab*) 81 mg PO DAILY [facility] Last Admin: 07/02/19 08:33 Dose: 81 mg Atorvastatin Calcium (Lipitor*) 20 mg PO BEDTIME [facility] Last Admin: 07/01/19 20:50 Dose: 20 mg Cefdinir (Cefdinir Cap*) 300 mg PO 1100,2300 [facility] Last Admin: 07/02/19 11:28 Dose: 300 mg Colesevelam HCl (Welchol(Nf)) 1,250 mg PO BID [facility] Last Admin: 07/02/19 08:29 Dose: Not Given Donepezil HCl (Aricept Tab*) 10 mg PO 2100 [facility] Last Admin: 07/01/19 20:50 Dose: 10 mg Doxycycline Hyclate (Vibramycin Cap(*)) 100 mg PO BID [facility] Last Admin: 07/02/19 08:33 Dose: 100 mg Furosemide (Lasix Tab*) 40 mg PO DAILY [facility] Last Admin: 07/02/19 08:32 Dose: 40 mg Guaifenesin (Robitussin 100 Mg/5ml Liq) 10 ml PO Q4H PRN PRN Reason: COUGH Last Admin: 07/02/19 03:58 Dose: 10 ml Levothyroxine Sodium (Synthroid Tab*) 37.5 mcg PO DAILY@0600 [facility] Last Admin: 07/02/19 05:51 Dose: 37.5 mcg Magnesium Oxide (Magox 400 Tab*) 400 mg PO DAILY [facility] Last Admin: 07/02/19 08:32 Dose: 400 mg Metoprolol Tartrate (Lopressor Tab*) 25 mg PO BID [facility] Last Admin: 07/02/19 08:34 Dose: 25 mg Mirabegron (Myrbetriq (Nf)) 50 mg PO DAILY [facility] Last Admin: 07/02/19 08:29 Dose: Not Given Spironolactone (Aldactone Tab*) 25 mg PO DAILY [facility] Last Admin: 07/02/19 08:34 Dose: 25 mg Valsartan (Diovan Tab*) 80 mg PO DAILY [facility] Last Admin: 07/02/19 08:33 Dose: 80 mg Vital Signs - 8 hr 07/02/19 07/02/19 11:15 15:15 Temperature 97.8 F 98.1 F Pulse Rate 60 93 Respiratory 24 20 Rate Blood Pressure 123/52 120/42 (mmHg) O2 Sat by Pulse 95 92 Oximetry Oxygen Devices in Use Now: None Appearance: awake, alert no distress Eyes: No Scleral Icterus, - Ears/Nose/Mouth/Throat: NL Teeth, Lips, Gums, Mucous Membranes Moist Neck: NL Appearance and Movements; NL JVP Respiratory: - - transmitted upper airway breathsounds Abdominal: NL Sounds; No Tenderness; No Distention Skin: No Rash or Ulcers Neurological: Alert and Oriented x 3, NL Muscle Strength and Tone Result Diagrams: 07/01/19 05:54 07/01/19 05:54 Microbiology and Other Data: Microbiology 06/28/19 21:45 Nasal Screen MRSA (PCR) - Final Nasal Mrsa Not Detected Assess/Plan/Problems-Billing 88 y/o female who presented on 06/28/19 for c/o SOB and nausea and was admitted for possible RLL pneumonia and CHF. - Patient Problems (1) Atrial fibrillation Current Visit: Yes Status: Acute Code(s): I48.91 - UNSPECIFIED ATRIAL FIBRILLATION SNOMED Code(s): 33804643 Comment: - Afib. Not sure of when she went into afib. - It was present on this admission and also seen 05/07/18 - She has not seen scalehouse attendant over 7 years and not on anticoagulation. - She was significantly bradycardic on torpol XL 100 mg now I changed it to 25 mg bid - On ASA 81 mg daily. [id number] score 5. I spoke to daughter and patient explained the risk and benefit and agreed for Anticoagulation. Will start Eliquis 2.5 mg bid (adjusted for age and GFR)- however pharmacy did recommend 5 mg bid as her GFR is improved (2) Coronary artery disease Current Visit: Yes Status: Acute Code(s): I25.10 - ATHSCL HEART DISEASE OF [place] CORONARY ARTERY W/O ANG PCTRS SNOMED Code(s): 31192108 Comment: - hx No c/o chest pain. Pleuritic with coughing - Troponin mildly elevatd but likely secondary to demand ischemia. - She does not want any aggressive therapy. - Cotinue aspirin 81 mg daiy, Lipitor 20 mg HS, and lopressor 25 mg bid (3) Acute exacerbation of CHF (congestive heart failure) Current Visit: Yes Status: Acute Code(s): I50.9 - HEART FAILURE, UNSPECIFIED SNOMED Code(s): 835161418 Comment: - Echo done 06/29/19 EF consistent 30-35% (same as in 2018) - I discussed with her and daughter at bedside risk of cardiac arrest and that she may benefit from cardiac evaluation for PPM/AICD given her low EF. She is not interested in pacemaker. - I will continue medical therapy, I will opitmize treatment and will need to re -establish with her scalehouse attendant as outpatient (Dr. Pierce have not seen him for > 7 years). - continue ASA 81 mg Daily; lopressor 25 mg bid; Diovan 80 mg daily. I will add aldactone 25 mg daily and watch electrolytes (4) CAP (community acquired pneumonia) Current Visit: Yes Status: Acute Code(s): J18.9 - PNEUMONIA, UNSPECIFIED ORGANISM SNOMED Code(s): 666168659 Comment: - RLL pneumonia. WBC count was up and now trending down. - will change ceftriaxone to cefdinir and continue doxycycline. Today is D#5. (5) Hypomagnesemia Current Visit: No Status: Acute Priority: High Onset Date: 04/16/14 Code (s): E83.42 - HYPOMAGNESEMIA SNOMED Code(s): 038983229 Comment: - continue magoxide 400 mg daily (6) Lymphedema of both lower extremities Current Visit: No Status: Acute Code(s): I89.0 - LYMPHEDEMA, NOT ELSEWHERE CLASSIFIED SNOMED Code(s): 50048940958565283 Comment: - KESHA wrap, s/p lasix 40 mg IV bid, supportive care. - Now on lasix 40 mg daily. Added aldactone 25 mg daily given her low EF 30-35 % (7) Hypertension Current Visit: Yes Status: Chronic Priority: Low Code(s): I10 - ESSENTIAL (PRIMARY) HYPERTENSION SNOMED Code(s): 48714853 Comment: - BP is under good control even with decreasing B-zion dose. - Continue metoprolol 25mg BID and diovan 80mg daily. - Added Aldactone 25 mg daily given her EF 30-35% (8) Hypothyroidism Current Visit: Yes Status: Chronic Priority: Low Code(s): E03.9 - HYPOTHYROIDISM, UNSPECIFIED SNOMED Code(s): 14412847 Comment: - TSH 3.17. - Continue current dose of synthroid. (9) Hyperlipidemia Current Visit: Yes Status: Chronic Code(s): E78.5 - HYPERLIPIDEMIA, UNSPECIFIED SNOMED Code(s): 96692661 Comment: Continue lipitor. (10) DVT prophylaxis Current Visit: Yes Status: Acute Code(s): MEI8789 - SNOMED Code(s): 480476461 Comment: SQ heparin
[2019-07-02] MEDS: Donepezil TAB* 5 MG PO SCH (20:07)
[2019-07-02] MEDS: Atorvastatin* 20 MG TAB PO SCH (20:08)
[2019-07-03] MEDS: Levothyroxine TAB* 75 MCG TAB PO SCH (05:35)
[2019-07-03] MEDS: NFT: Mirabegron (NF) 50 MG TAB PO SCH (09:54)
[2019-07-03] MEDS: COLESEVELAM 625 MG PO SCH ×2 (09:54→21:13)
[2019-07-03] MEDS: Aspirin EC TAB* 81 MG TAB.EC PO SCH (09:54)
[2019-07-03] MEDS: Apixaban* 5 MG TAB PO SCH ×2 (09:55→21:13)
[2019-07-03] MEDS: DOXYcycline CAP(*) 100 MG PO SCH ×2 (09:56→21:13)
[2019-07-03] MEDS: Cefdinir cap* 300 MG CAP PO SCH ×2 (09:57→21:13)
[2019-07-03] MEDS: Valsartan TAB* 80 MG PO SCH (09:59)
[2019-07-03] MEDS: Metoprolol Tartrate TAB* 25 MG PO SCH ×2 (09:59→21:12)
[2019-07-03] MEDS: Spironolactone TAB* 25 MG PO SCH (10:00)
[2019-07-03] MEDS: Magnesium Oxide TAB* 400 MG PO SCH (10:01)
[2019-07-03] MEDS: Furosemide TAB* 40 MG PO SCH (10:01)
--- NOTE | 2019-07-03 14:51 | PN ---
Subjective Date of Service: 07/03/19 Interval History: continue to cough more productive. no events overnight. taking po well. voiding well. still very weak and require help with ambulation and activity. awaiting rehab Past Medical History: Unchanged from Admission Objective Active Medications: Acetaminophen (Tylenol Tab*) 650 mg PO Q6HR PRN PRN Reason: PAIN - MODERATE Apixaban (Eliquis*) 5 mg PO BID [facility] Last Admin: 07/03/19 09:55 Dose: 5 mg Aspirin (Aspirin Ec Tab*) 81 mg PO DAILY [facility] Last Admin: 07/03/19 09:54 Dose: 81 mg Atorvastatin Calcium (Lipitor*) 20 mg PO BEDTIME [facility] Last Admin: 07/02/19 20:08 Dose: 20 mg Cefdinir (Cefdinir Cap*) 300 mg PO 1100,2300 [facility] Last Admin: 07/03/19 09:57 Dose: 300 mg Colesevelam HCl (Welchol(Nf)) 1,250 mg PO BID [facility] Last Admin: 07/03/19 09:54 Dose: Not Given Donepezil HCl (Aricept Tab*) 10 mg PO 2100 [facility] Last Admin: 07/02/19 20:07 Dose: 10 mg Doxycycline Hyclate (Vibramycin Cap(*)) 100 mg PO BID [facility] Last Admin: 07/03/19 09:56 Dose: 100 mg Furosemide (Lasix Tab*) 40 mg PO DAILY [facility] Last Admin: 07/03/19 10:01 Dose: 40 mg Guaifenesin (Robitussin 100 Mg/5ml Liq) 10 ml PO Q4H PRN PRN Reason: COUGH Last Admin: 07/02/19 03:58 Dose: 10 ml Levothyroxine Sodium (Synthroid Tab*) 37.5 mcg PO DAILY@0600 [facility] Last Admin: 07/03/19 05:35 Dose: 37.5 mcg Magnesium Oxide (Magox 400 Tab*) 400 mg PO DAILY [facility] Last Admin: 07/03/19 10:01 Dose: 400 mg Metoprolol Tartrate (Lopressor Tab*) 25 mg PO BID [facility] Last Admin: 07/03/19 09:59 Dose: 25 mg Mirabegron (Myrbetriq (Nf)) 50 mg PO DAILY [facility] Last Admin: 07/03/19 09:54 Dose: Not Given Spironolactone (Aldactone Tab*) 25 mg PO DAILY [facility] Last Admin: 07/03/19 10:00 Dose: 25 mg Valsartan (Diovan Tab*) 80 mg PO DAILY [facility] Last Admin: 07/03/19 09:59 Dose: 80 mg Vital Signs - 8 hr 07/03/19 07/03/19 07/03/19 07:36 08:00 11:44 Temperature 98.3 F 97.9 F Pulse Rate 72 64 Respiratory 22 22 24 Rate Blood Pressure 132/45 101/45 (mmHg) O2 Sat by Pulse 93 95 Oximetry Oxygen Devices in Use Now: None Appearance: awake ,alert. pleasant Eyes: No Scleral Icterus, - - EOMI Ears/Nose/Mouth/Throat: NL Teeth, Lips, Gums, Mucous Membranes Moist Neck: NL Appearance and Movements; NL JVP, Trachea Midline Respiratory: Symmetrical Chest Expansion and Respiratory Effort, - - transmitted upper airway breathsound Cardiovascular: NL Sounds; No Murmurs; No JVD, - - +1 edema. no JVD Abdominal: NL Sounds; No Tenderness; No Distention Extremities: - - + edema Result Diagrams: 07/01/19 05:54 07/01/19 05:54 Microbiology and Other Data: Microbiology 06/28/19 21:45 Nasal Screen MRSA (PCR) - Final Nasal Mrsa Not Detected Assess/Plan/Problems-Billing 88 y/o female who presented on 06/28/19 for c/o SOB and nausea and was admitted for possible RLL pneumonia and CHF. - Patient Problems (1) Atrial fibrillation Current Visit: Yes Status: Acute Code(s): I48.91 - UNSPECIFIED ATRIAL FIBRILLATION SNOMED Code(s): 14970595 Comment: - Afib. Not sure of when she went into afib. It was present on this admission and also seen 05/07/18. She has not seen fiber locking supervisor over 7 years and not on anticoagulation. - She had significant bradycardia on torpol XL 100 mg now I changed it to 25 mg bid - Continue ASA 81 mg daily. [id number] score 5. I spoke to daughter and patient explained the risk and benefit and agreed for Anticoagulation. Will start Eliquis as per pharmacy recommendation 5 mg bid as her GFR is improved. (2) Coronary artery disease Current Visit: Yes Status: Acute Code(s): I25.10 - ATHSCL HEART DISEASE OF [place] CORONARY ARTERY W/O ANG PCTRS SNOMED Code(s): 24359713 Comment: - hx No c/o chest pain. Pleuritic with coughing - Troponin mildly elevatd but likely secondary to demand ischemia. - She does not want any aggressive therapy. - Cotinue aspirin 81 mg daiy, Lipitor 20 mg HS, and lopressor 25 mg bid (3) Acute exacerbation of CHF (congestive heart failure) Current Visit: Yes Status: Acute Code(s): I50.9 - HEART FAILURE, UNSPECIFIED SNOMED Code(s): 108865515 Comment: - Echo done 06/29/19 EF consistent 30-35% (same as in 2018) - I discussed with her and daughter at bedside risk of cardiac arrest and that she may benefit from cardiac evaluation for PPM/AICD given her low EF. She is not interested in pacemaker. - I will continue medical therapy, I will opitmize treatment and will need to re -establish with her fiber locking supervisor as outpatient (Dr. Pierce have not seen him for > 7 years). - continue ASA 81 mg Daily; lopressor 25 mg bid; Diovan 80 mg daily. I did add aldactone 25 mg daily and watch electrolytes (4) CAP (community acquired pneumonia) Current Visit: Yes Status: Acute Code(s): J18.9 - PNEUMONIA, UNSPECIFIED ORGANISM SNOMED Code(s): 384315520 Comment: - RLL pneumonia. WBC count was up and now trending down. - changed ceftriaxone to cefdinir and continue doxycycline. Today is D#6. (5) Hypomagnesemia Current Visit: No Status: Acute Priority: High Onset Date: 04/16/14 Code (s): E83.42 - HYPOMAGNESEMIA SNOMED Code(s): 432135716 Comment: - continue magoxide 400 mg daily (6) Lymphedema of both lower extremities Current Visit: No Status: Acute Code(s): I89.0 - LYMPHEDEMA, NOT ELSEWHERE CLASSIFIED SNOMED Code(s): 13281752306247339 Comment: - KESHA wrap, s/p lasix 40 mg IV bid, supportive care. - Now on lasix 40 mg daily. Added aldactone 25 mg daily given her low EF 30-35 % (7) Hypertension Current Visit: Yes Status: Chronic Priority: Low Code(s): I10 - ESSENTIAL (PRIMARY) HYPERTENSION SNOMED Code(s): 08437048 Comment: - BP is under good control even with decreasing B-zion dose. - Continue metoprolol 25mg BID and diovan 80mg daily. - Added Aldactone 25 mg daily given her EF 30-35% (8) Hypothyroidism Current Visit: Yes Status: Chronic Priority: Low Code(s): E03.9 - HYPOTHYROIDISM, UNSPECIFIED SNOMED Code(s): 32541714 Comment: - TSH 3.17. - Continue current dose of synthroid. (9) Hyperlipidemia Current Visit: Yes Status: Chronic Code(s): E78.5 - HYPERLIPIDEMIA, UNSPECIFIED SNOMED Code(s): 74081195 Comment: Continue lipitor. (10) DVT prophylaxis Current Visit: Yes Status: Acute Code(s): FQT7076 - SNOMED Code(s): 621202876 Comment: SQ heparin
[2019-07-03] MEDS ORDERED: ALPRAZolam TAB* 0.25 MG PO PRN (14:52)
[2019-07-03] MEDS: guaiFENesin 100 mg/5 ml LIQ unit dose cup PO PRN (21:11)
[2019-07-03] MEDS: Donepezil TAB* 5 MG PO SCH (21:13)
[2019-07-03] MEDS: Atorvastatin* 20 MG TAB PO SCH (21:13)
[2019-07-04 06:04] LABS: ABS Eosinophils 0.1 10^3/ul (0-0.6); ABS Monocytes 1.4 10^3/ul (0-0.8); ABS Neutrophils 7.1 10^3/ul (1.5-7.7); Hematocrit 38 % (35-47); Lymphocyte % 10.6 %; Mean Corpuscular HGB Conc 34 g/dL (31-36); Mean Corpuscular Hemoglobin 33 pg (27-31); Mean Corpuscular Volume 96 fL (80-97); Mean Platelet Volume 9.3 fL (7.4-10.4); Platelet Count 208 10^3/uL (150-450); Red Blood Count 3.98 10^6 /uL (3.70-4.87); Red Cell Distribution Width 15 % (10-15); White Blood Count 9.7 10^3/uL (3.5-10.8)
[2019-07-04 06:23] LABS: BUN/Creatinine Ratio 25.3 (8-20); Calcium 8.9 mg/dL (8.6-10.3); EGFR African American 64.2 (>60); EGFR Non-African American 53.1 (>60); Magnesium 1.8 mg/dL (1.9-2.7); Phosphorus 3.4 mg/dL (2.5-5.0)
[2019-07-04] MEDS: Levothyroxine TAB* 75 MCG TAB PO SCH (07:39)
[2019-07-04] MEDS: Metoprolol Tartrate TAB* 25 MG PO SCH (08:45)
[2019-07-04] MEDS: Aspirin EC TAB* 81 MG TAB.EC PO SCH (08:45)
[2019-07-04] MEDS: DOXYcycline CAP(*) 100 MG PO SCH (08:45)
[2019-07-04] MEDS: COLESEVELAM 625 MG PO SCH (08:48)
[2019-07-04] MEDS: NFT: Mirabegron (NF) 50 MG TAB PO SCH (08:48)
[2019-07-04] MEDS: Apixaban* 5 MG TAB PO SCH (08:48)
[2019-07-04] MEDS: Furosemide TAB* 40 MG PO SCH (08:48)
[2019-07-04] MEDS: Spironolactone TAB* 25 MG PO SCH (08:49)
[2019-07-04] MEDS ORDERED: Cefdinir cap* 300 MG CAP PO SCH (09:00)
[2019-07-04] MEDS ORDERED: Magnesium Oxide TAB* 400 MG PO SCH (09:00)
[2019-07-04] MEDS: Valsartan TAB* 80 MG PO SCH (11:26)
[2019-07-04 13:11] VITALS: BP 108/43
--- NOTE | 2019-07-04 16:07 | DS ---
CC: Dr. Davis Ferguson; Dr. Alexandr Pierce * DATE OF ADMISSION: 06/28/2019. DATE OF DISCHARGE: 07/04/2019. FINAL DISCHARGE DIAGNOSES: 1. Right lower lobe community-acquired pneumonia. 2. Congestive heart failure, systolic, acute on chronic. 3. Chronic atrial fibrillation. 4. History of coronary disease. 5. Hypertension. 6. Adjustment mood disorder. 7. Lymphedema both lower extremities. 8. Hypertension. 9. Hypothyroidism. 10. Hyperlipidemia. HOSPITAL COURSE: The patient presented to [facility] Emergency Room on 06/28/2019 for shortness of breath, nausea, GI upset associated with pale skin pallor and during her admission evaluation it was reported that the patient has a history of CHF diagnosed years ago, has not followed with a platen press operator apprentice for many, many years. On initial work-up in the ER, included a chest x-ray which shows right lower lung capacity and an EKG which confirmed prior non-diagnosis of chronic atrial fibrillation. She was admitted to the medical service on the tele floor. She was started on IV Ceftriaxone as well as Azithromycin and she was initiated on IV diuretic. She was put on the ACS rule out protocol. Her troponin initially was 0.4 and repeat was 0.05. Her BNP was greater than 1,300. The patient was seen and evaluated by me for the initial encounter the following morning of June 28 and given her ongoing cough and coarse rhonchi, antibiotic was maintained intravenously. On further discussion with the patient and her daughter at bedside, it became apparent that the patient has not seen a platen press operator apprentice for several years. The daughter tells me she used to follow-up with Dr. Pierce. I did call Dr. Pierce's office to inquire on the last office visit and I spoke with him over the phone. From his quick short review, he informed me that she has not been seen for at least seven years plus. I did review over her medical record and her last echocardiogram from 2017 did reveal an ejection fraction of 30 to 35 percent. Given her underlying admission criteria for CHF, I pursued repeat echocardiogram to reassess her EF which seems to be stable at 30 to 35 percent and hypokinesis in the apical and inferoseptal wall. No significant valvular disease, other than the mild mitral regurgitation. Given her low EF, I went back and revisited with the family, her daughter and the patient given her low EF which puts her at high risk of cardiac arrhythmia and sudden . She clearly and more than once expressed her wishes against any intervention, including and specifically pacemaker and defibrillator and no intervention. At one time, the patient was verbalizing that she just wants to be made comfortable. Her daughter at the bedside was morally supportive to the patient herself and on revisiting after a few days with the pneumonia treatment and CHF treatment, she agreed to continue on medical therapy, but did not want any further cardiac work-up. I spoke with Dr. Suero who was inventory control/shipping receiving regarding her medical management. I reviewed her case and at that time with my recommendation, nor any further cardiac work-up interim medical treatment, he agreed with the implementation of Spironolactone 25 mg daily, manage her atrial fib with a rate control, Metoprolol currently is at 25 b.i.d., maintaining pulse range between 60s and as high as 93. Regarding anticoagulation, after discussing with the family the benefits and risks, they agreed for anticoagulation and I placed her on Eliquis. Dose was confirmed with the pharmacy at 5 b.i.d. Maintained her on Lipitor 20 and placed her on low dose Diovan ARB 80 mg daily. She remained in the hospital pending PT/OT and rehab placement and she was finally able to be provided a bed at [facility] for rehab today and she will be discharged to [facility] for physical therapy and rehabilitation and medical therapy treatment. PHYSICAL EXAMINATION ON DISCHARGE: General: She is awake, alert. She has a flat affect, appears to be depressed. Conversant dialect, but with minimal interaction. Vital Signs: Temperature 97.8, pulse 69, respiratory rate 18, satting 96 percent, blood pressure 108/43. Lungs: She does have transmitted upper airway breath sounds, cleared with coughing. Cardiovascular: S1, S2 irregularly irregular. Abdomen: Positive bowel sounds, soft, nontender, nondistended. Extremities: Positive bilateral lymphedema. YARD MOTOR OPERATOR: Normal to focal sensory deficit, generalized weakness secondary to deconditioning. Psych : She has a flat affect, depression, with depressed mood. DISCHARGE MEDICATIONS: 1. Xanax 0.125 mg every 8 hours as needed. 2. Eliquis 5 mg b.i.d. 3. Cefdinir 300 mg twice a day for 3 days. 4. Doxycycline 100 mg b.i.d. for 3 days. 5. Lasix 40 mg daily. 6. Magnesium oxide 400 mg twice a day. 7. Lopressor 25 mg b.i.d. 8. Rfoue0qlao 25 mg daily. 9. Zoloft 25 mg daily. 10. Tylenol as needed. 11. Myrbetriq 50 mg daily. 12. Aspirin 81 mg daily. 13. Levoxyl 37.5 mcg daily. 14. Welchol 1,250 mg twice a day. 15. Aricept 10 mg daily. 16. Diovan 80 mg daily. 17. Simvastatin 40 mg daily. DISCHARGE INSTRUCTIONS: 1. Follow-up with primary care in one to two weeks. 2. Please set up an appointment to re-establish with Dr. Pierce. 3. Take all medication as prescribed. 4. Consider repeating chest x-ray in four weeks to ensure complete resolution of her pneumonia. CONDITION ON DISCHARGE: Stable. DISCHARGE DISPOSITION: [facility]. [id number]/CPS #: [id number] MTDD
== END 2019-07-04 16:30 | DRG 291 ==
LOC: ED 17:27 → MEDTELE 20:56
PROVIDERS: ADMIT Family Medicine; ATTEND Internal Medicine
DX: I11.0 Hypertensive heart disease with heart failure (principal); J18.9 Pneumonia, unspecified organism; I47.2 Ventricular tachycardia; I48.20 Chronic atrial fibrillation, unspecified; R00.1 Bradycardia, unspecified; I50.23 Acute on chronic systolic (congestive) heart failure; E83.42 Hypomagnesemia; E03.9 Hypothyroidism, unspecified; E78.5 Hyperlipidemia, unspecified; I89.0 Lymphedema, not elsewhere classified; I34.0 Nonrheumatic mitral (valve) insufficiency; G31.84 Mild cognitive impairment of uncertain or unknown etiology; Z66 Do not resuscitate; F43.21 Adjustment disorder with depressed mood; I25.10 Atherosclerotic heart disease of native coronary artery without angina pectoris; R79.89 Other specified abnormal findings of blood chemistry; E78.00 Pure hypercholesterolemia, unspecified; F03.90 Unspecified dementia, unspecified severity, without behavioral disturbance, psychotic disturbance, mood disturbance, and anxiety; G25.0 Essential tremor; Z79.82 Long term (current) use of aspirin; Z87.891 Personal history of nicotine dependence; Z79.899 Other long term (current) drug therapy; Z79.890 Hormone replacement therapy
CPT/HCPCS: 36415; 71046; 80048; 80053; 83735; 83880; 84100; 84443; 84484; 85025; 87641; 93005; 93306; 99284; A9270-GY; J0456; J0696; J1644; J1940; J3475